=== PATIENT | female | born 1965 | race Caucasian/White ===

== ENCOUNTER 2019-02-01 13:56 | Inpatient (IN) | payer OTHER ==
[~2019-02-01] VITALS: Ht 170.2 cm; Wt 154.2 kg
[~2019-02-01 13:56] MED LIST: B-121000 MC2 PO; CEPH500 PO; CLIN300 PO; COU; COUMADIN; CYCL10 PO; DOCU100 PO; DULO30 PO; ELIQUIS5 MG PO; FERSU300 PO; FLUO20; FOLI1 PO; GABA300 PO; GABA600 PO; HYDACE5; HYDACE5 PO; MIRALAX17 GM PO; NAPR550 PO; OMEPRAZOLE MAGN20 MG PO; OXYACE5T PO; OXYC1TAB11 PO; Pedi-Dri 100,0060 GM TOP; Percocet 7.5-31 EACH PO; SENN187 PO; SIMV10; TRAM50 PO; Ultram50 MG PO; WARF10; [UNRECOGNIZED DRUG - OTHER]
[2019-02-01] MEDS ORDERED: Fleet Enema132 ML PR (14:48)
[2019-02-01] MEDS ORDERED: FURO40 (14:49)
[2019-02-01] MEDS ORDERED: POTCHL20ER PO (14:50)
[2019-02-01 15:01] LABS: Source, Urine Catheter
[2019-02-01 15:07] LABS: BASOPHILS ABSOLUTE AUTO 0.02 K/mm3 (0.00-0.23); BASOPHILS PERCENT AUTO 0 % (0-2); EOSINOPHILS ABSOLUTE AUTO 0.21 K/mm3 (0.00-0.68); EOSINOPHILS PERCENT AUTO 2 % (0-6); Hematocrit 41.4 % (33.0-51.0); Hemoglobin 12.4 g/dL (11.5-16.0); IMMATURE GRAN ABSOLUTE AUTO 0.03 K/mm3 (0.00-0.10); IMMATURE GRAN PERCENT AUTO 0 % (0-1); LYMPHOCYTES ABSOLUTE AUTO 1.42 K/mm3 (0.84-5.20); LYMPHOCYTES PERCENT AUTO 14 % (21-46); MONOCYTES ABSOLUTE AUTO 0.75 K/mm3 (0.16-1.47); MONOCYTES PERCENT AUTO 8 % (4-13); Mean Corpuscular Volume 77 fL (80-100); Mean Platelet Volume 10.5 fL (9.1-12.4); NEUTROPHILS PERCENT AUTO 75 % (41-73); Platelet Count 270 K/mm3 (150-400); RDW Coefficient Variation 17.8 % (11.7-14.2); RDW Standard Deviation 48.5 fL (35.1-46.3); White Blood Cell Count 9.83 K/mm3 (4.00-11.30)
[2019-02-01 15:09] LABS: Bilirubin, Urine Neg (Neg); Blood, Urine Neg (Neg); Glucose Qualitative, Urine Neg (Neg); Ketones, Urine Neg (Neg); Leukocyte Esterase, Urine Neg (Neg); Nitrite, Urine Neg (Neg); Protein, Urine Neg (Neg); Urobilinogen, Urine NORM (Normal)
[2019-02-01 15:17] LABS: Alanine Aminotransfer (ALT/SGP 21 U/L (12-78); Albumin, Blood 3.2 g/dL (3.4-5.0); Albumin/Globulin Ratio 0.7 (0.8-1.8); Alk Phos 141 U/L (50-136); Anion Gap 6 mmol/L (6-16); Aspartate Aminotrans (AST/SGOT 18 U/L (12-37); Bilirubin, Total 0.4 mg/dL (0.1-1.0); Blood Urea Nitrogen 12 mg/dL (8-24); Bun/Creatinine Ratio 24.2 (12.0-20.0); CO2, Blood 31 mmol/L (21-32); Calcium, Blood 9.2 mg/dL (8.5-10.1); Chloride, Blood 104 mmol/L (98-108); Globulin, Blood 4.4 g/dL (2.2-4.0); Glomerular Filtration Rate >60 (60-); Glucose, Blood 104 mg/dL (70-99); Sodium, Blood 141 mmol/L (136-145); Total Protein, Blood 7.6 g/dL (6.4-8.2)
[2019-02-01 15:27] LABS: Appearance, Urine Clear (Clear); Color, Urine Yellow (P-Yellow)
[2019-02-01] MEDS ORDERED: FURO40 PO (18:07)
[2019-02-01 23:01] LABS: Source, Urine Catheter
[2019-02-01 23:03] LABS: Bilirubin, Urine Neg (Neg); Blood, Urine 2+ (Neg); Glucose Qualitative, Urine Neg (Neg); Ketones, Urine Neg (Neg); Leukocyte Esterase, Urine 3+ (Neg); Nitrite, Urine Neg (Neg); Protein, Urine Neg (Neg); Urobilinogen, Urine NORM (Normal)
[2019-02-01 23:11] LABS: Appearance, Urine Hazy (Clear); Color, Urine Yellow (P-Yellow)
[2019-02-01 23:13] LABS: Bacteria Mod /hpf; Squamous Epithelial Cells Mod /hpf (Few); White Blood Cells, Urine TNTC /hpf (0-5)
[2019-02-02 04:50] LABS: BASOPHILS ABSOLUTE AUTO 0.03 K/mm3 (0.00-0.23); BASOPHILS PERCENT AUTO 0 % (0-2); EOSINOPHILS ABSOLUTE AUTO 0.16 K/mm3 (0.00-0.68); EOSINOPHILS PERCENT AUTO 2 % (0-6); Hematocrit 39.2 % (33.0-51.0); Hemoglobin 11.7 g/dL (11.5-16.0); IMMATURE GRAN ABSOLUTE AUTO 0.02 K/mm3 (0.00-0.10); IMMATURE GRAN PERCENT AUTO 0 % (0-1); LYMPHOCYTES ABSOLUTE AUTO 1.74 K/mm3 (0.84-5.20); LYMPHOCYTES PERCENT AUTO 21 % (21-46); MONOCYTES ABSOLUTE AUTO 0.75 K/mm3 (0.16-1.47); MONOCYTES PERCENT AUTO 9 % (4-13); Mean Corpuscular HGB 23.1 pg (26.0-34.0); Mean Corpuscular HGB Conc 29.8 g/dL (31.5-36.5); Mean Corpuscular Volume 77 fL (80-100); NEUTROPHILS ABSOLUTE AUTO 5.79 K/mm3 (1.96-9.15); NEUTROPHILS PERCENT AUTO 68 % (41-73); Platelet Count 265 K/mm3 (150-400); RDW Coefficient Variation 17.6 % (11.7-14.2); Red Blood Cell Count 5.07 M/mm3 (3.80-5.20); White Blood Cell Count 8.49 K/mm3 (4.00-11.30)
[2019-02-02 05:06] LABS: Anion Gap 3 mmol/L (6-16); Blood Urea Nitrogen 9 mg/dL (8-24); Bun/Creatinine Ratio 22.5 (12.0-20.0); CO2, Blood 29 mmol/L (21-32); Calcium, Blood 8.9 mg/dL (8.5-10.1); Chloride, Blood 110 mmol/L (98-108); Glomerular Filtration Rate >60 (60-); Glucose, Blood 97 mg/dL (70-99); Potassium, Blood 3.9 mmol/L (3.5-5.5); Sodium, Blood 142 mmol/L (136-145)
--- NOTE | 2019-02-02 06:09 | NUR ---
SHIFT SUMMARY ADMIT @ 2004 FROM [facility] ADMITTED FOR SBO. AOX4. LS CLEAR, DENIES SOB. BS HYPO, NO C/O NAUSEA, LAST BM YESTERDAY. PAIN RATED 8-9/10 MOSTLY IN R LEG. R LEG CONTRACTURE. PERCOCET GIVEN @ 2155, 0200, AND 0330. FLEXERIL GIVEN @ 0045. 50MCG OF FENT GIVEN @ 0430. ONE TIME DOSE OF ATIVAN GIVEN @ 0430. CHRONIC THOMASON FROM [facility] CHANGED. NG ON LOW INT SUCTION, ABOUT 200 OF BROWN MUCOUSY OUTPUT OVERNIGHT. NS W/KCL INFUSING @ 150 IN R AC. NPO EXCEPT ICE CHIPS. Q2 TURN, ASHVIN LIFT. 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 L HIP WOUND IS FROM AN OLD HEALING ULCER, DRESSING C/D/I. SECOND OLD HEALING ULCER ON COCCYX, UNABLE TO SEE, PLAN TO ASSESS NEXT TIME PT IS ABLE TO MOVE. TELE READS NSR 78. REFUSED SUPPOSITORY. VSS ON RA. SISTER STAYED THE NIGHT WITH HER.
--- NOTE | 2019-02-02 18:27 | NUR ---
HTN PT'S BLOOD PRESSURE 186/96. THIS RN CALLED DR. SLATER AND NOTIFIED HER OF PT'S INCREASING BP WITH NO ORDERED PRN MEDICATIONS. NEW ORDERS GIVEN FOR HYDRALAZINE AND D/C OF IVF. HYDRALAZINE ADMINISTERED PER ORDERS AND IVF STOPPED. WILL CONTINUE TO MONITOR EFFECTIVENESS OF HYDRALAZINE. CALL LIGHT IN REACH.
--- NOTE | 2019-02-02 18:29 | NUR ---
SHIFT SUMMARY PT HAS HAD 2 LARGE SOFT STOOLS THIS SHIFT. PT'S DIET ADVANCED TO CLEAR LIQUID AND PT TOLERATING. IVF STOPPED PER DR. SLATER'S ORDER. PT HAS HAD HTN THIS SHIFT AND HYDRALAZINE WAS GIVEN THIS EVENING. THOMASON PATENT AND DRAINGING LARGE AMOUNTS OF URINE. MEDICATED FOR HEADACHE X1 AND CHRONIC PAIN X2 PER EMAR. NO DISTRESS AT THIS TIME. CALL LIGHT IN REACH. WILL CONTINUE TO MONITOR AND REPORT TO ONCOMING RN.
--- NOTE | 2019-02-03 05:33 | NUR ---
SHIFT SUMMARY AOX4. LS CLEAR, DENIES SOB. NO C/O NAUSEA. PAIN IN L LEG. FLEXERIL GIVEN @ 2300. 2 PERCOCET GIVEN @ 0120. WOUND ON COCCYX UNSEEN, PT REFUSES TO ROLL. L HIP DRESSING C/D/I. TELE READS NSR 83. R AC IS SL. ASHVIN LIFT. CHRONIC THOMASON, CLOUDY YELLOW. REFUSED SUPPOSITORY. VSS ON RA. [facility]
--- NOTE | 2019-02-03 14:30 | NUR ---
REPORT CALLED TO AVRIL AT [facility]. SISTER HAS BEEN IN AND OUT OF ROOM AND IS AWARE OF PTS DISCHARGE. PT TURNED AND ALLOWED TO BE CLEANED UP AND PIC TAKEN OF L HIP. FRIENDLY AND CHATTY WITH STAFF. HAPPY TO BE GOING BACK. DENIES ANY ABDOMENAL PAIN OR NAUSEA. SLID TO GURNEY WITH SLING. TO [facility] VIA GURNEY WITH TRANSPORT ASSISTANTS.
[2019-02-03] MEDS ORDERED: GAVILAX17 GM PO (15:43)
== END 2019-02-03 14:05 | DRG 394 ==
LOC: ER 13:56 → MEDS 18:25
PROVIDERS: Emergency Medicine; Nurse Practitioner Acute Care; ADMIT Internal Medicine
DX: K43.6 Other and unspecified ventral hernia with obstruction, without gangrene (principal); Z68.43 Body mass index [BMI] 50.0-59.9, adult; Z74.01 Bed confinement status; Z87.891 Personal history of nicotine dependence; E66.01 Morbid (severe) obesity due to excess calories; G89.29 Other chronic pain
CPT/HCPCS: 36415; 74176; 80048; 80053; 81001; 81003; 83690; 85025; 87077; 87086; 87186; 96361; 96374; 99285-25; A9270; J0360; J0696; J2060; J3010; J3480; J7030

== ENCOUNTER → 2019-05-24 | Outpatient (CLI) | payer OTHER ==
[~2019-05-24] MED LIST changes: +FURO40; +FURO40 PO; +Fleet Enema132 ML PR; +GAVILAX17 GM PO; +POTCHL20ER PO
[2019-05-24 10:27] LABS: International Normalized Ratio 1.02; Prothrombin Time Results 10.9 Sec (9.7-11.5)
== END | disposition home or self-care (01) ==
LOC: LAB RH 08:07 → EDSTATUS 11:50 → LAB RH 11:51
DX: R79.1 Abnormal coagulation profile (principal)
CPT/HCPCS: 36415; 85610

== ENCOUNTER → 2019-05-26 | Outpatient (CLI) | payer OTHER ==
[2019-05-26 09:32] LABS: International Normalized Ratio 1.38; Prothrombin Time Results 14.5 Sec (9.7-11.5)
== END | disposition home or self-care (01) ==
LOC: LAB RH 08:26 → EDSTATUS 11:51
DX: R79.1 Abnormal coagulation profile (principal)
CPT/HCPCS: 36415; 85610

== ENCOUNTER → 2019-05-31 | Outpatient (CLI) | payer OTHER ==
[2019-05-31 10:21] LABS: International Normalized Ratio 2.92; Prothrombin Time Results 29.4 Sec (9.7-11.5)
== END | disposition home or self-care (01) ==
LOC: LAB RH 08:25 → EDSTATUS 15:14 → LAB RH 15:15
DX: I82.409 Acute embolism and thrombosis of unspecified deep veins of unspecified lower extremity (principal)
CPT/HCPCS: 36415; 85610

== ENCOUNTER → 2019-06-07 | Outpatient (CLI) | payer OTHER ==
[2019-06-07 10:43] LABS: International Normalized Ratio 3.44; Prothrombin Time Results 34.3 Sec (9.7-11.5)
== END ==
LOC: LAB RH 08:33 → EDSTATUS 11:29 → LAB RH 11:30
PROVIDERS: Family Medicine
DX: Z79.01 Long term (current) use of anticoagulants (principal); Z51.81 Encounter for therapeutic drug level monitoring
CPT/HCPCS: 36415; 85610

== ENCOUNTER → 2019-06-10 | Outpatient (CLI) | payer OTHER ==
[2019-06-10 10:28] LABS: International Normalized Ratio 2.57; Prothrombin Time Results 26.1 Sec (9.7-11.5)
== END | disposition home or self-care (01) ==
LOC: LAB RH 08:10 → EDSTATUS 11:32
PROVIDERS: Family Medicine
DX: I82.423 Acute embolism and thrombosis of iliac vein, bilateral (principal)
CPT/HCPCS: 36415; 85610

== ENCOUNTER → 2019-06-14 | Outpatient (CLI) | payer OTHER ==
[2019-06-14 11:24] LABS: International Normalized Ratio 2.74; Prothrombin Time Results 27.7 Sec (9.7-11.5)
== END | disposition home or self-care (01) ==
LOC: LAB RH 09:54 → EDSTATUS 11:33
PROVIDERS: Family Medicine
DX: I26.99 Other pulmonary embolism without acute cor pulmonale (principal)
CPT/HCPCS: 36415; 85610

== ENCOUNTER → 2019-06-21 | Outpatient (CLI) | payer OTHER ==
[2019-06-21 10:23] LABS: International Normalized Ratio 2.72; Prothrombin Time Results 27.5 Sec (9.7-11.5)
== END | disposition home or self-care (01) ==
LOC: LAB RH 09:07 → EDSTATUS 13:48
PROVIDERS: Nurse Practitioner Gerontology
DX: I26.99 Other pulmonary embolism without acute cor pulmonale (principal)
CPT/HCPCS: 36415; 85610

== ENCOUNTER → 2019-07-06 | Outpatient (CLI) | payer OTHER ==
[2019-07-06 11:33] LABS: International Normalized Ratio 1.93; Prothrombin Time Results 19.9 Sec (9.7-11.5)
== END | disposition home or self-care (01) ==
LOC: LAB RH 09:04 → EDSTATUS 13:52 → LAB RH 13:53
PROVIDERS: Family Medicine
DX: I26.99 Other pulmonary embolism without acute cor pulmonale (principal)
CPT/HCPCS: 36415; 85610

== ENCOUNTER → 2019-07-13 | Outpatient (CLI) | payer OTHER ==
[2019-07-13 09:34] LABS: International Normalized Ratio 2.19; Prothrombin Time Results 22.4 Sec (9.7-11.5)
== END | disposition home or self-care (01) ==
LOC: LAB RH 07:44 → EDSTATUS 11:09
PROVIDERS: Family Medicine
DX: I26.99 Other pulmonary embolism without acute cor pulmonale (principal)
CPT/HCPCS: 36415; 85610

== ENCOUNTER → 2019-07-20 | Outpatient (CLI) | payer OTHER ==
[2019-07-20 09:19] LABS: International Normalized Ratio 2.22; Prothrombin Time Results 22.7 Sec (9.7-11.5)
== END | disposition home or self-care (01) ==
LOC: LAB RH 07:31 → EDSTATUS 13:21
DX: I26.99 Other pulmonary embolism without acute cor pulmonale (principal)
CPT/HCPCS: 36415; 85610

== ENCOUNTER 2019-09-29 07:25 | Inpatient (IN) | payer OTHER ==
[~2019-09-29] VITALS: Ht 167.6 cm; Wt 174.7 kg
[2019-09-29] MEDS ORDERED: FERSU300 PO (08:05)
[2019-09-29] MEDS ORDERED: DULO30 PO (08:05)
[2019-09-29] MEDS ORDERED: FURO40 PO (08:06)
[2019-09-29] MEDS ORDERED: SENN187 PO (08:06)
[2019-09-29] MEDS ORDERED: OMEP20ER PO (08:06)
[2019-09-29] MEDS ORDERED: FOLI1 PO (08:06)
[2019-09-29] MEDS ORDERED: K-Dur 20 meq T20 MEQ PO (08:06)
[2019-09-29] MEDS ORDERED: GABA300 PO (08:07)
[2019-09-29] MEDS ORDERED: PERCOCET 10-321 EACH PO (08:07)
[2019-09-29] MEDS ORDERED: CYAN500 PO (08:07)
[2019-09-29] MEDS ORDERED: CYCL10 PO (08:08)
[2019-09-29] MEDS ORDERED: WARF5 PO (08:09)
[2019-09-29] MEDS ORDERED: WARF3 (08:09)
[2019-09-29 08:11] LABS: BASOPHILS ABSOLUTE AUTO 0.04 K/mm3 (0.00-0.23); BASOPHILS PERCENT AUTO 0 % (0-2); EOSINOPHILS ABSOLUTE AUTO 0.01 K/mm3 (0.00-0.68); EOSINOPHILS PERCENT AUTO 0 % (0-6); Hemoglobin 14.4 g/dL (11.5-16.0); IMMATURE GRAN ABSOLUTE AUTO 0.08 K/mm3 (0.00-0.10); IMMATURE GRAN PERCENT AUTO 1 % (0-1); LYMPHOCYTES ABSOLUTE AUTO 1.35 K/mm3 (0.84-5.20); LYMPHOCYTES PERCENT AUTO 9 % (21-46); MONOCYTES ABSOLUTE AUTO 0.62 K/mm3 (0.16-1.47); MONOCYTES PERCENT AUTO 4 % (4-13); Mean Corpuscular HGB Conc 30.6 g/dL (31.5-36.5); Mean Corpuscular Volume 82 fL (80-100); Mean Platelet Volume 10.8 fL (9.1-12.4); NEUTROPHILS ABSOLUTE AUTO 13.59 K/mm3 (1.96-9.15); NEUTROPHILS PERCENT AUTO 87 % (41-73); Platelet Count 259 K/mm3 (150-400); RDW Standard Deviation 48.9 fL (35.1-46.3); Red Blood Cell Count 5.75 M/mm3 (3.80-5.20); White Blood Cell Count 15.69 K/mm3 (4.00-11.30)
[2019-09-29 08:33] LABS: Alanine Aminotransfer (ALT/SGP 16 U/L (12-78); Albumin, Blood 3.3 g/dL (3.4-5.0); Albumin/Globulin Ratio 0.7 (0.8-1.8); Alk Phos 143 U/L (50-136); Anion Gap 5 mmol/L (6-16); Aspartate Aminotrans (AST/SGOT 15 U/L (12-37); Bilirubin, Total 0.6 mg/dL (0.1-1.0); Blood Urea Nitrogen 10 mg/dL (8-24); Bun/Creatinine Ratio 22.9 (12.0-20.0); CO2, Blood 29 mmol/L (21-32); Calcium, Blood 8.9 mg/dL (8.5-10.1); Chloride, Blood 106 mmol/L (98-108); Creatinine, Blood 0.44 mg/dL (0.40-1.00); Globulin, Blood 4.9 g/dL (2.2-4.0); Glomerular Filtration Rate >60 (60-); Glucose, Blood 136 mg/dL (70-99); Potassium, Blood 3.5 mmol/L (3.5-5.5); Sodium, Blood 140 mmol/L (136-145); Total Protein, Blood 8.2 g/dL (6.4-8.2); Troponin I <0.015 ng/mL (0.000-0.040)
[2019-09-29 11:18] LABS: International Normalized Ratio 1.63
--- NOTE | 2019-09-29 14:52 | NUR ---
RECIEVED REPORT FROM COOKER SULFITE MARINA AT 1140. PATIENT ARRIVED TO ROOM 340 AT 1201 AND WAS TRANSFERED INTO HOSPITAL BED WITH THE ASSISTANCE OF 3 EMPLOYEES. ASSESSMENT, H&P AND MED REC COMPLETED WITH THE ASSISTANCE OF THE PATIENT. PATIENT ALERT AND ORIENTED. BEDBOUND AND INCONTINENT AT BASELINE. COOPERATIVE WITH STAFF. PATIENT HAS BEEN STARTED ON IV ABX WITHOUT S/SX OF ADVERSE REACTIONS NOTED OR REPORTED. C/O SEVERE HEART BURN AND WAS ABLE TO RECEIVE AN ORDER FROM DR PETERSON FOR MAALOX PRN, TAKEN WITH EFFECTIVENESS. PATIENT IS CURRENTLY IN ROOM RESTING IN BED. WILL CONTINUE TO MONITOR AND PROVIDE CARE NEEDED.
--- NOTE | 2019-09-29 16:31 | NUR ---
PATIENT BEGAN TO CRY OUT IN PAIN AT ABOUT 1600. SHE STATES THAT SHE FEELS SHE IS DYING. SHE WANTS DR PETERSON TO COME SEE HER. DR PETERSON CAME TO PATIENTS ROOM TO ASSESS HER AND PROVIDED NEW ORDERS PER EMAR. IV ACCESS ACCIDENTLY PULLED. AWAITING IV ACCESS TO ADMINISTER MEDICATION.
--- NOTE | 2019-09-29 18:33 | NUR ---
PATIENT CONTINUED TO COMPLAIN OF PAIN AND BEGAN ASKING FOR ITEMS TO HARM HERSELF D/T THE PAIN BEING TOO MUCH TO BARE. RAPID RESPONSE CALLED ON THE PATIENT AND A STAT CTA. PATIENT WAS JUST TAKEN AT 1830 FOR THE CTA AND WILL THEN BE TRANSFERED TO PCU.
--- NOTE | 2019-09-29 21:00 | NUR ---
UPDATE NURSE PRACTIONER MONSERRAT IN ROOM ASSESSING PATIENT. NG TUBE ORDERED AND PLACED AT THIS TIME WELL WITH A RETURN OF APPROX 400 MLS OF DARK GREEN FLUID. NG TUBE PLACED TO LOW INTERMITTENT SUCTION PER ORDERS. IV FLUIDS STARTED PER ORDERS WELL. SADAF NAJERA UPDATED PER PATIENT'S REQUEST.
--- NOTE | 2019-09-29 21:59 | NUR ---
UPDATE PATIENT'S SISTER ANA LILIA UPDATED WELL PER PATIENT'S REQUEST. SECOND IV PLACED AT THIS TIME. VITAL SIGNS CHARTED. PATIENT REPORTING PAIN IS A 10/10. PATIENT BEING MEDICATED PER EMAR AND HAS A HEATING PAD ON ABD FOR COMFORT WELL. PATIENT APPEARS TO BE RESTING MORE COMFORTABLY AT THIS TIME. PATIENT REQUESTING NOT TO BE TURNED RIGHT NOW DUE TO PAIN. PATIENT HAS AN ACCEPTING DR AND A BED ASIGNMENT IN [place] AT THIS TIME. WAITING ON APPROPRIATE TRANSPORTATION TO BE AVAILIBLE. WILL CONTINUE TO MONITOR.
--- NOTE | 2019-09-29 22:50 | NUR ---
EVENT NOTE NOTIFIED AVRIL (HOSPITALIST) THAT AIR TRANSPORT HAS DECLINED DUE TO PATIENT SIZE. [facility] WITH [facility] IS 2-1/2 HOURS OUT. AVRIL HAS AGREED THAT GROUND TRANSPORT WOULD BE BEST AT THIS TIME SO NOT TO DELAY TREATMENT ANY FURTHER. NOTIFIED [facility] AND AWAITING AVAILABILITY OF A CREW.
--- NOTE | 2019-09-29 23:45 | NUR ---
UPDATE PICAYUNE WAPA ARRIVED TO TRANSPORT PATIENT TO [place], REPORT GIVEN AND ALL BELONGINGS SENT WITH PATIENT. PATIENT LEFT AT APPROX 2330. NIECE, REINALDO, AND SISTER, ANA LILIA, AWARE THAT PATIENT IS LEAVING AT THIS TIME. PATIENT'S VITALS CHARTED. PATIENT HAS BEEN RESTING QUIETLY AND EVEN STATED THAT SHE HAD GOTTEN, "A LITTLE SLEEP." PRIOR TO PICAYUNE WAPA ARRIVING.
--- NOTE | 2019-09-29 23:58 | NUR ---
[facility] GIVEN TO BENJAMIN MATHUR FROM [facility] AT APPROX 3503.
== END 2019-09-30 00:05 | disposition short-term general hospital (02) | DRG 388 ==
LOC: ER 07:25 → MEDS 10:35 → PCU 18:52
PROVIDERS: Emergency Medicine; Pharmacist; ADMIT Internal Medicine
DX: K56.2 Volvulus (principal); J69.0 Pneumonitis due to inhalation of food and vomit; Z68.44 Body mass index [BMI] 60.0-69.9, adult; Z87.891 Personal history of nicotine dependence; E66.01 Morbid (severe) obesity due to excess calories; Z74.01 Bed confinement status; G89.4 Chronic pain syndrome; Z79.01 Long term (current) use of anticoagulants; K43.9 Ventral hernia without obstruction or gangrene
CPT/HCPCS: 36415; 71045; 71275; 74174; 74177; 80053; 83605; 83690; 84484; 85025; 85610; 93005; 93010; 94760; 96365-59; 96367; 96375; 99285-25; C9113; J0696; J1170; J1885; J2060; J2270; J2405; J2550; J7030; J7050; P9612; Q9967

== ENCOUNTER 2019-10-28 19:17 | Inpatient (IN) | payer OTHER ==
[~2019-10-28] VITALS: Ht 175.3 cm; Wt 181.4 kg
[~2019-10-28 19:17] MED LIST changes: +CYAN500 PO; +K-Dur 20 meq T20 MEQ PO; +OMEP20ER PO; +PERCOCET 10-321 EACH PO; +WARF3; +WARF5 PO
[2019-10-28] MEDS ORDERED: SIME80CH PO (19:33)
[2019-10-28 19:57] LABS: BASOPHILS ABSOLUTE AUTO 0.05 K/mm3 (0.00-0.23); BASOPHILS PERCENT AUTO 0 % (0-2); EOSINOPHILS ABSOLUTE AUTO 0.13 K/mm3 (0.00-0.68); EOSINOPHILS PERCENT AUTO 1 % (0-6); Hematocrit 36.2 % (33.0-51.0); Hemoglobin 10.2 g/dL (11.5-16.0); IMMATURE GRAN ABSOLUTE AUTO 0.04 K/mm3 (0.00-0.10); IMMATURE GRAN PERCENT AUTO 0 % (0-1); LYMPHOCYTES ABSOLUTE AUTO 1.19 K/mm3 (0.84-5.20); LYMPHOCYTES PERCENT AUTO 9 % (21-46); MONOCYTES ABSOLUTE AUTO 1.15 K/mm3 (0.16-1.47); MONOCYTES PERCENT AUTO 9 % (4-13); Mean Corpuscular HGB 23.3 pg (26.0-34.0); Mean Corpuscular HGB Conc 28.2 g/dL (31.5-36.5); Mean Corpuscular Volume 83 fL (80-100); Mean Platelet Volume 9.9 fL (9.1-12.4); NEUTROPHILS ABSOLUTE AUTO 10.82 K/mm3 (1.96-9.15); NEUTROPHILS PERCENT AUTO 81 % (41-73); Platelet Count 465 K/mm3 (150-400); RDW Coefficient Variation 17.9 % (11.7-14.2); RDW Standard Deviation 54.2 fL (35.1-46.3); Red Blood Cell Count 4.37 M/mm3 (3.80-5.20); White Blood Cell Count 13.38 K/mm3 (4.00-11.30)
[2019-10-28 20:11] LABS: Alanine Aminotransfer (ALT/SGP 9 U/L (12-78); Albumin, Blood 2.5 g/dL (3.4-5.0); Albumin/Globulin Ratio 0.5 (0.8-1.8); Alk Phos 127 U/L (50-136); Anion Gap 7 mmol/L (6-16); Aspartate Aminotrans (AST/SGOT 21 U/L (12-37); Bilirubin, Total 0.7 mg/dL (0.1-1.0); Blood Urea Nitrogen 8 mg/dL (8-24); Bun/Creatinine Ratio 17.2 (12.0-20.0); CO2, Blood 27 mmol/L (21-32); Calcium, Blood 8.3 mg/dL (8.5-10.1); Chloride, Blood 105 mmol/L (98-108); Creatinine, Blood 0.47 mg/dL (0.40-1.00); Globulin, Blood 5.4 g/dL (2.2-4.0); Glomerular Filtration Rate >60 (60-); Glucose, Blood 112 mg/dL (70-99); Potassium, Blood 3.9 mmol/L (3.5-5.5); Sodium, Blood 139 mmol/L (136-145); Total Protein, Blood 7.9 g/dL (6.4-8.2)
== END 2019-10-29 03:24 | DRG 862 ==
LOC: ER 19:17 → ERHOLD 23:32 → ER 10-29 00:35 → ERHOLD 10-29 03:00
PROVIDERS: Emergency Medicine; ADMIT Internal Medicine
DX: T81.43XA Infection following a procedure, organ and space surgical site, initial encounter (principal); A41.9 Sepsis, unspecified organism; Z68.43 Body mass index [BMI] 50.0-59.9, adult; T81.44XA Sepsis following a procedure, initial encounter; Z87.891 Personal history of nicotine dependence; E66.01 Morbid (severe) obesity due to excess calories
CPT/HCPCS: 36415; 74177; 80053; 83605; 83690; 85025; 87040; 96361; 96365-59; 96366; 96375; 96376; 99285-25; J1170; J2185; J2405; J3370; J7030; J7050; Q9967

== ENCOUNTER → 2020-04-04 | Outpatient (CLI) | payer OTHER ==
[~2020-04-04] MED LIST changes: +SIME80CH PO
[2020-04-04 15:13] LABS: International Normalized Ratio 2.03; Prothrombin Time Results 20.9 Sec (9.7-11.5)
== END | disposition home or self-care (01) ==
LOC: LAB RH 11:30
PROVIDERS: Family Medicine
DX: I26.99 Other pulmonary embolism without acute cor pulmonale (principal)
CPT/HCPCS: 85610

== ENCOUNTER → 2020-07-05 | Outpatient (CLI) | payer OTHER ==
[2020-07-05 10:36] LABS: Anion Gap 7 mmol/L (6-16); Blood Urea Nitrogen 9 mg/dL (8-24); CO2, Blood 28 mmol/L (21-32); Calcium, Blood 8.3 mg/dL (8.5-10.1); Chloride, Blood 106 mmol/L (98-108); Creatinine, Blood 0.56 mg/dL (0.40-1.00); Glomerular Filtration Rate >60 (60-); Glucose, Blood 85 mg/dL (70-99); Potassium, Blood 4.1 mmol/L (3.5-5.5); Sodium, Blood 141 mmol/L (136-145)
== END | disposition home or self-care (01) ==
LOC: LAB RH 09:47 → EDSTATUS 13:44
PROVIDERS: Family Medicine
DX: R60.0 Localized edema (principal)
CPT/HCPCS: 80048

== ENCOUNTER → 2020-10-19 | Outpatient (CLI) | payer OTHER ==
[2020-10-19 12:22] LABS: International Normalized Ratio 1.67; Prothrombin Time Results 17.5 Sec (9.7-11.5)
== END | disposition home or self-care (01) ==
LOC: LAB RH 10:16 → EDSTATUS 10:26
PROVIDERS: Internal Medicine
DX: I26.99 Other pulmonary embolism without acute cor pulmonale (principal)
CPT/HCPCS: 85610

== ENCOUNTER → 2020-10-27 | Outpatient (CLI) | payer OTHER ==
[2020-10-27 12:31] LABS: International Normalized Ratio 1.9; Prothrombin Time Results 19.8 Sec (9.7-11.5)
== END ==
LOC: EDSTATUS 09:32 → LAB RH 10:55
PROVIDERS: Family Medicine
DX: I26.99 Other pulmonary embolism without acute cor pulmonale (principal); Z79.01 Long term (current) use of anticoagulants
CPT/HCPCS: 85610

== ENCOUNTER → 2020-11-02 | Outpatient (CLI) | payer OTHER ==
[2020-11-02 12:34] LABS: International Normalized Ratio 2.26; Prothrombin Time Results 23.3 Sec (9.7-11.5)
== END ==
LOC: EDSTATUS 09:33 → LAB RH 11:20
PROVIDERS: Internal Medicine
DX: R79.1 Abnormal coagulation profile (principal)
CPT/HCPCS: 85610

== ENCOUNTER → 2021-01-05 | Outpatient (CLI) | payer OTHER ==
[2021-01-05 17:42] LABS: Anion Gap 4 mmol/L (6-16); Blood Urea Nitrogen 12 mg/dL (8-24); Bun/Creatinine Ratio 22.3 (12.0-20.0); CO2, Blood 31 mmol/L (21-32); Calcium, Blood 8.7 mg/dL (8.5-10.1); Chloride, Blood 107 mmol/L (98-108); Creatinine, Blood 0.54 mg/dL (0.40-1.00); Glomerular Filtration Rate >60 (60-); Glucose, Blood 81 mg/dL (70-99); Potassium, Blood 3.9 mmol/L (3.5-5.5); Sodium, Blood 142 mmol/L (136-145)
== END | disposition home or self-care (01) ==
LOC: EDSTATUS 12:05 → LAB RH 13:55
PROVIDERS: Internal Medicine
DX: R60.0 Localized edema (principal)
CPT/HCPCS: 80048

== ENCOUNTER → 2021-06-19 | Outpatient (CLI) | payer OTHER ==
[2021-06-19 16:34] LABS: International Normalized Ratio 2.38; Prothrombin Time Results 23.6 Sec (9.7-11.5)
== END | disposition home or self-care (01) ==
LOC: EDSTATUS 10:56 → LAB RH 13:42
PROVIDERS: Internal Medicine
DX: U07.1 COVID-19 (principal)
CPT/HCPCS: 85610

== ENCOUNTER → 2021-09-14 | Outpatient (CLI) | payer OTHER ==
[2021-09-14 11:10] LABS: International Normalized Ratio 2.87; Prothrombin Time Results 28.1 Sec (9.7-11.5)
== END | disposition home or self-care (01) ==
LOC: LAB RH 08:40 → EDSTATUS 14:59
PROVIDERS: Internal Medicine
DX: R26.89 Other abnormalities of gait and mobility (principal)
CPT/HCPCS: 85610

== ENCOUNTER → 2021-10-25 | Outpatient (CLI) | payer OTHER ==
[2021-10-25 13:30] LABS: International Normalized Ratio 2.23; Prothrombin Time Results 22.2 Sec (9.7-11.5)
== END | disposition home or self-care (01) ==
LOC: LAB RH 12:34 → EDSTATUS 13:13
PROVIDERS: Internal Medicine
DX: I26.99 Other pulmonary embolism without acute cor pulmonale (principal)
CPT/HCPCS: 85610

== ENCOUNTER 2022-01-12 15:38 | Emergency (ER) | payer OTHER ==
[~2022-01-12] VITALS: Ht 172.7 cm; Wt 173.7 kg
[~2022-01-12 15:38] MED LIST changes: -ACET325 PO; -BACL10 PO
[2022-01-12 17:43] LABS: Influenza A, PCR NEGATIVE (NEGATIVE); Influenza B, PCR NEGATIVE (NEGATIVE); Resp Syncytial Virus, PCR NEGATIVE (NEGATIVE); SARS-Cov-2 (COVID-19) PCR, MMC NEGATIVE (NEGATIVE)
== END 2022-01-12 19:19 | disposition home or self-care (01) ==
LOC: ER 15:38
PROVIDERS: Student in an Organized Health Care Education/Training Program
DX: J98.11 Atelectasis (principal); R51.9 Headache, unspecified; E66.2 Morbid (severe) obesity with alveolar hypoventilation; D64.9 Anemia, unspecified; Z68.43 Body mass index [BMI] 50.0-59.9, adult; Z87.891 Personal history of nicotine dependence; Z86.718 Personal history of other venous thrombosis and embolism; Z79.899 Other long term (current) drug therapy; Z79.01 Long term (current) use of anticoagulants; Z74.01 Bed confinement status; Z20.822 Contact with and (suspected) exposure to COVID-19
CPT/HCPCS: 0241U; 71045; 93005; 93010; A9270

== ENCOUNTER → 2022-01-12 | Outpatient (CLI) | payer OTHER ==
[~2022-01-12] MED LIST changes: +ACET325 PO; +BACL10 PO
[2022-01-12 09:59] LABS: BASOPHILS ABSOLUTE AUTO 0.05 K/mm3 (0.00-0.23); BASOPHILS PERCENT AUTO 1 % (0-2); EOSINOPHILS ABSOLUTE AUTO 0.28 K/mm3 (0.00-0.68); EOSINOPHILS PERCENT AUTO 3 % (0-6); Hematocrit 39.6 % (33.0-51.0); Hemoglobin 10.7 g/dL (11.5-16.0); IMMATURE GRAN ABSOLUTE AUTO 0.04 K/mm3 (0.00-0.10); IMMATURE GRAN PERCENT AUTO 0 % (0-1); LYMPHOCYTES ABSOLUTE AUTO 1.63 K/mm3 (0.84-5.20); LYMPHOCYTES PERCENT AUTO 15 % (21-46); MONOCYTES ABSOLUTE AUTO 0.88 K/mm3 (0.16-1.47); MONOCYTES PERCENT AUTO 8 % (4-13); Mean Corpuscular Volume 74 fL (80-100); Mean Platelet Volume 10.2 fL (9.1-12.4); NEUTROPHILS ABSOLUTE AUTO 8.23 K/mm3 (1.96-9.15); NEUTROPHILS PERCENT AUTO 74 % (41-73); Platelet Count 301 K/mm3 (150-400); RDW Coefficient Variation 19.7 % (11.7-14.2); RDW Standard Deviation 51.4 fL (35.1-46.3); Red Blood Cell Count 5.36 M/mm3 (3.80-5.20); White Blood Cell Count 11.11 K/mm3 (4.00-11.30)
[2022-01-12 10:15] LABS: Bun/Creatinine Ratio 22.7 (12.0-20.0); Calcium, Blood 8.3 mg/dL (8.5-10.1); Creatinine, Blood 0.53 mg/dL (0.40-1.00); Potassium, Blood 4.4 mmol/L (3.5-5.5)
== END ==
LOC: LAB RH 09:15 → EDSTATUS 10:02
PROVIDERS: Internal Medicine
DX: N39.0 Urinary tract infection, site not specified (principal)
CPT/HCPCS: 80048; 85025

== ENCOUNTER 2022-03-02 16:35 | Emergency (ER) | payer OTHER ==
[~2022-03-02] VITALS: Ht 172.7 cm; Wt 166.9 kg
[2022-03-02 17:11] LABS: BASOPHILS ABSOLUTE AUTO 0.04 K/mm3 (0.00-0.23); BASOPHILS PERCENT AUTO 0 % (0-2); EOSINOPHILS ABSOLUTE AUTO 0.26 K/mm3 (0.00-0.68); EOSINOPHILS PERCENT AUTO 3 % (0-6); Hematocrit 39.6 % (33.0-51.0); Hemoglobin 10.5 g/dL (11.5-16.0); IMMATURE GRAN ABSOLUTE AUTO 0.05 K/mm3 (0.00-0.10); IMMATURE GRAN PERCENT AUTO 1 % (0-1); LYMPHOCYTES ABSOLUTE AUTO 1.51 K/mm3 (0.84-5.20); LYMPHOCYTES PERCENT AUTO 15 % (21-46); MONOCYTES ABSOLUTE AUTO 0.89 K/mm3 (0.16-1.47); MONOCYTES PERCENT AUTO 9 % (4-13); Mean Corpuscular HGB 19.9 pg (26.0-34.0); Mean Corpuscular HGB Conc 26.5 g/dL (31.5-36.5); Mean Corpuscular Volume 75 fL (80-100); Mean Platelet Volume 9.6 fL (9.1-12.4); NEUTROPHILS ABSOLUTE AUTO 7.42 K/mm3 (1.96-9.15); NEUTROPHILS PERCENT AUTO 73 % (41-73); Platelet Count 328 K/mm3 (150-400); RDW Coefficient Variation 21.3 % (11.7-14.2); RDW Standard Deviation 56.8 fL (35.1-46.3); Red Blood Cell Count 5.27 M/mm3 (3.80-5.20); White Blood Cell Count 10.17 K/mm3 (4.00-11.30)
[2022-03-02 17:22] LABS: Albumin, Blood 2.9 g/dL (3.4-5.0); Albumin/Globulin Ratio 0.6 (0.8-1.8); Bilirubin, Total 0.2 mg/dL (0.1-1.0); Bun/Creatinine Ratio 16.2 (12.0-20.0); Calcium, Blood 8.3 mg/dL (8.5-10.1); Creatinine, Blood 0.56 mg/dL (0.40-1.00); Globulin, Blood 4.6 g/dL (2.2-4.0); Potassium, Blood 4.1 mmol/L (3.5-5.5); Total Protein, Blood 7.5 g/dL (6.4-8.2)
[2022-03-02 18:28] LABS: PCO2 Arterial 82.4 mmHg (35-45); PO2 Arterial 81.4 mmHg (80-100)
[2022-03-02] MEDS ORDERED: ACET325 PO (19:30)
[2022-03-02] MEDS ORDERED: BACL10 PO (19:33)
== END 2022-03-02 19:55 | disposition home or self-care (01) ==
LOC: ER 16:35
PROVIDERS: Student in an Organized Health Care Education/Training Program
DX: J18.9 Pneumonia, unspecified organism (principal); Z79.01 Long term (current) use of anticoagulants; Z79.899 Other long term (current) drug therapy; Z87.891 Personal history of nicotine dependence
CPT/HCPCS: 36415; 36600; 71045; 80053; 82803; 85025

== ENCOUNTER → 2022-03-25 | Outpatient (CLI) | payer OTHER ==
[~2022-03-25] MED LIST changes: +ACET325 PO; +BACL10 PO
[2022-03-25 23:22] LABS: Appearance, Urine Hazy (Clear); Bilirubin, Urine Neg (Neg); Blood, Urine 5+ (Neg); Color, Urine Yellow (P-Yellow); Glucose Qualitative, Urine Neg (Neg); Ketones, Urine Neg (Neg); Leukocyte Esterase, Urine 1+ (Neg); Nitrite, Urine Neg (Neg); Protein, Urine 2+ (Neg); Urobilinogen, Urine 1+ (Normal)
[2022-03-25 23:41] LABS: Bacteria Many /hpf; Red Blood Cells, Urine 25-50 /hpf (0-2); Squamous Epithelial Cells Few /hpf (Few)
[2022-03-25 23:42] LABS: Amorphous Light (0-Heavy)
== END | disposition home or self-care (01) ==
LOC: EDSTATUS 08:31 → LAB RH 22:56
PROVIDERS: Internal Medicine
DX: Z23 Encounter for immunization (principal); M24.561 Contracture, right knee; E66.01 Morbid (severe) obesity due to excess calories; M19.90 Unspecified osteoarthritis, unspecified site; F32.9 Major depressive disorder, single episode, unspecified; D64.9 Anemia, unspecified; M62.81 Muscle weakness (generalized); R26.89 Other abnormalities of gait and mobility; M79.7 Fibromyalgia; J30.2 Other seasonal allergic rhinitis; L30.9 Dermatitis, unspecified; R60.0 Localized edema; I26.99 Other pulmonary embolism without acute cor pulmonale; Z74.1 Need for assistance with personal care
CPT/HCPCS: 81001; 87086

== ENCOUNTER → 2022-03-30 | Outpatient (CLI) | payer OTHER | END | disposition home or self-care (01) | LOC: EDSTATUS 09:19 → LAB RH 11:13 | DX: E72.20 Disorder of urea cycle metabolism, unspecified (principal) | CPT/HCPCS: 82140 ==

== ENCOUNTER → 2022-04-30 | Outpatient (CLI) | payer OTHER ==
[2022-04-30 20:14] LABS: Creatinine, Blood 0.47 mg/dL (0.40-1.00); Potassium, Blood 3.9 mmol/L (3.5-5.5)
== END ==
LOC: LAB RH 13:34 → EDSTATUS 14:24
PROVIDERS: Internal Medicine
DX: E72.20 Disorder of urea cycle metabolism, unspecified (principal)
CPT/HCPCS: 80048; 82140

== ENCOUNTER → 2022-05-20 | Outpatient (CLI) | payer OTHER | LOC: EDSTATUS 09:38 → LAB RH 10:35 | DX: E72.20 Disorder of urea cycle metabolism, unspecified (principal) | CPT/HCPCS: 82140 ==

== ENCOUNTER → 2022-07-24 | Outpatient (CLI) | payer OTHER ==
[2022-07-24 14:07] LABS: International Normalized Ratio 1.83; Prothrombin Time Results 18.5 Sec (9.7-11.5)
== END | disposition home or self-care (01) ==
LOC: LAB RH 12:20 → EDSTATUS 14:51
PROVIDERS: Family Medicine
DX: I26.99 Other pulmonary embolism without acute cor pulmonale (principal)
CPT/HCPCS: 85610

== ENCOUNTER → 2022-11-17 | Outpatient (CLI) | payer OTHER ==
[~2022-11-17] MED LIST changes: +ARTIFICIAL TEAR15 M2 BOTHEYES; +BISA10S PR; +BUSPIRONE HCL7.5 M1 PO; +CONSTULOSE10 GM/15 M PO; +DULO60 PO; +ELIQUIS5 M2 PO; +OXAYDO5 M2 PO; +Percocet 10-321 EACH PO; -WARF3; +WARF4 PO
[2022-11-17 21:39] LABS: Hemoglobin 8.9 g/dL (11.5-16.0)
== END | disposition home or self-care (01) ==
LOC: EDSTATUS 10:39 → LAB RH 21:32 → LAB QU 21:32
DX: I26.99 Other pulmonary embolism without acute cor pulmonale (principal); D64.9 Anemia, unspecified
CPT/HCPCS: 85014; 85018

== ENCOUNTER 2023-02-08 19:07 | Inpatient (IN) | payer OTHER ==
[~2023-02-08] VITALS: Ht 172.7 cm; Wt 174.2 kg
[2023-02-08 19:42] LABS: BASOPHILS ABSOLUTE AUTO 0.03 K/mm3 (0.00-0.23); BASOPHILS PERCENT AUTO 0 % (0-2); EOSINOPHILS ABSOLUTE AUTO 0.23 K/mm3 (0.00-0.68); EOSINOPHILS PERCENT AUTO 2 % (0-6); Hematocrit 36.5 % (33.0-51.0); Hemoglobin 10.6 g/dL (11.5-16.0); IMMATURE GRAN ABSOLUTE AUTO 0.04 K/mm3 (0.00-0.10); IMMATURE GRAN PERCENT AUTO 0 % (0-1); LYMPHOCYTES ABSOLUTE AUTO 1.78 K/mm3 (0.84-5.20); LYMPHOCYTES PERCENT AUTO 15 % (21-46); MONOCYTES ABSOLUTE AUTO 0.75 K/mm3 (0.16-1.47); MONOCYTES PERCENT AUTO 6 % (4-13); Mean Corpuscular HGB 25.9 pg (26.0-34.0); Mean Corpuscular Volume 89 fL (80-100); NEUTROPHILS ABSOLUTE AUTO 9.07 K/mm3 (1.96-9.15); NEUTROPHILS PERCENT AUTO 76 % (41-73); Platelet Count 259 K/mm3 (150-400); RDW Coefficient Variation 16.3 % (11.7-14.2); RDW Standard Deviation 53.4 fL (35.1-46.3)
[2023-02-08 20:01] LABS: Albumin, Blood 2.9 g/dL (3.4-5.0); Albumin/Globulin Ratio 0.5 (0.8-1.8); Bilirubin, Total 0.2 mg/dL (0.1-1.0); Bun/Creatinine Ratio 13.2 (12.0-20.0); Calcium, Blood 8.6 mg/dL (8.5-10.1); Creatinine, Blood 0.76 mg/dL (0.40-1.00); Globulin, Blood 5.4 g/dL (2.2-4.0); Potassium, Blood 3.8 mmol/L (3.5-5.5); Total Protein, Blood 8.3 g/dL (6.4-8.2)
[2023-02-08] MEDS ORDERED: MIRALAX17 GM PO (21:37)
[2023-02-08] MEDS ORDERED: OXYC10TA19 PO (21:38)
[2023-02-08] MEDS ORDERED: ZYRTEC10 M2 PO (21:39)
[2023-02-08] MEDS ORDERED: OMEP20ER PO (21:40)
[2023-02-08] MEDS ORDERED: BUSP10 PO (21:41)
[2023-02-08 23:08] LABS: Adenovirus Not Detected (NOT DETECT); Bordetella pertussis Not Detected (NOT DETECT); Chlamydophila pneumoniae Not Detected (NOT DETECT); Coronavirus 229E Not Detected (NOT DETECT); Coronavirus HKU1 Not Detected (NOT DETECT); Coronavirus NL63 Not Detected (NOT DETECT); Coronavirus OC43 Not Detected (NOT DETECT); Human Metapneumovirus Not Detected (NOT DETECT); Human Rhinovirus/Enterovirus Not Detected (NOT DETECT); Influenza A/2009-H1 Not Detected (NOT DETECT); Influenza A/H1 Not Detected (NOT DETECT); Influenza A/H3 Not Detected (NOT DETECT); Influenza B Not Detected (NOT DETECT); Mycoplasma pneumoniae Not Detected (NOT DETECT); Parainfluenza Virus 1 Not Detected (NOT DETECT); Parainfluenza Virus 2 Not Detected (NOT DETECT); Parainfluenza Virus 3 Not Detected (NOT DETECT); Parainfluenza Virus 4 Not Detected (NOT DETECT); Respiratory Syncytial Virus Not Detected (NOT DETECT); SARS-Cov-2 (COVID-19), BioFire Not Detected (NOT DETECT)
[2023-02-09 00:02] VITALS: BP 174/77
[2023-02-09 00:40] LABS: Base Excess Venous 20.4 mmol/L; Bicarbonate Venous 42.2 mmol/L (24.0-30.0); PCO2 Venous 54.9 mmHg (38-42); pH Blood Venous 7.51 (7.34-7.37)
[2023-02-09 04:41] VITALS: BP 171/69
[2023-02-09 04:52] LABS: BASOPHILS ABSOLUTE AUTO 0.04 K/mm3 (0.00-0.23); BASOPHILS PERCENT AUTO 0 % (0-2); EOSINOPHILS ABSOLUTE AUTO 0.19 K/mm3 (0.00-0.68); EOSINOPHILS PERCENT AUTO 2 % (0-6); Hematocrit 34.3 % (33.0-51.0); Hemoglobin 10.1 g/dL (11.5-16.0); IMMATURE GRAN ABSOLUTE AUTO 0.05 K/mm3 (0.00-0.10); IMMATURE GRAN PERCENT AUTO 1 % (0-1); LYMPHOCYTES ABSOLUTE AUTO 1.64 K/mm3 (0.84-5.20); LYMPHOCYTES PERCENT AUTO 16 % (21-46); MONOCYTES ABSOLUTE AUTO 0.67 K/mm3 (0.16-1.47); MONOCYTES PERCENT AUTO 6 % (4-13); Mean Corpuscular HGB Conc 29.4 g/dL (31.5-36.5); Mean Corpuscular Volume 88 fL (80-100); Mean Platelet Volume 9.6 fL (9.1-12.4); NEUTROPHILS ABSOLUTE AUTO 7.99 K/mm3 (1.96-9.15); NEUTROPHILS PERCENT AUTO 76 % (41-73); Platelet Count 220 K/mm3 (150-400); RDW Coefficient Variation 16.2 % (11.7-14.2); RDW Standard Deviation 52.1 fL (35.1-46.3); Red Blood Cell Count 3.89 M/mm3 (3.80-5.20); White Blood Cell Count 10.58 K/mm3 (4.00-11.30)
[2023-02-09 05:26] LABS: Albumin, Blood 2.8 g/dL (3.4-5.0); Anion Gap 2 mmol/L (6-16); Blood Urea Nitrogen 9 mg/dL (8-24); Bun/Creatinine Ratio 13.1 (12.0-20.0); CO2, Blood 43 mmol/L (21-32); Calcium, Blood 8.6 mg/dL (8.5-10.1); Chloride, Blood 98 mmol/L (98-108); Creatinine, Blood 0.69 mg/dL (0.40-1.00); Glomerular Filtration Rate 102 (60-); Glucose, Blood 151 mg/dL (70-99); Magnesium, Blood 2.3 mg/dL (1.6-2.4); Phosphorus, Blood 3.7 mg/dL (2.5-4.9); Potassium, Blood 3.6 mmol/L (3.5-5.5); Sodium, Blood 143 mmol/L (136-145)
--- NOTE | 2023-02-09 06:02 | NUR ---
SHIFT SUMMARY PT CONFUSED, DISORIENTED TO PLACE, TIME, AND SITUATION. PT ONLY ABLE TO TOLERATE CPAP FOR 20-30 MINS, PLACED ON 4L NC REMAINDER OF NIGHT WITH O2 SATS 92% AND ABOVE.
[2023-02-09 07:00] VITALS: BP 177/78
[2023-02-09 15:21] VITALS: BP 167/86
[2023-02-09 19:19] VITALS: BP 176/82
--- NOTE | 2023-02-09 19:45 | NUR ---
SHIFT SUMMARY PT AWAKE AT START OF SHIFT, LF, WATCHING TV. PER REPORT, PT CONFUSED ON ADMIT, BUT NOW A&O. LACTULOSE GIVEN PER EMAR. PT HAVING BM'S; INCONTINENT OF BOWEL AND BLADDER. PT CLEANED AND REPOSITIONED THRU OUT THE SHIFT. RLE WITH CONTRACTURE. L ARM WITH LIMITED MOBILITY. PT NOW BACK TO BASELINE RA @ 3L O2 WITH BIOX AT 96%. LUNG SCAN CANCELED D/T PT'S OBESITY. DR MARSH IN TO SEE PT AND DISCUSS PLAN OF CARE. PT'S SISTER HERE THIS AM AND STAYED MOST OF THE DAY. SEVERAL OTHER VISITORS HERE WELL OFF AND ON. MEDICATED FOR C/O BACK AND LEG PAIN, PER EMAR. PT RESTING QUIETLY THIS EVENING. CALL LT IN REACH.
[2023-02-10 03:09] VITALS: BP 169/83
--- NOTE | 2023-02-10 05:01 | NUR ---
SHIFT SUMMARY PRN PAIN MEDICATION GIVEN X2 PER PT REQUEST WITH POSITIVE EFFECT. PT NOW AAOX3 AND NO EPISODES OF CONFUSION ALL SHIFT. PT WAS NOT ON BIPAP ALL NIGHT SO SHE DID DESAT TO 84% ON THE 3L NC, INCREASED TO 4L NC AND O2 SATS 92% AND HIGHER REMAINDER OF NIGHT. PT DECREASED BACK TO 3L NC SOON AWAKE AND MAINTAINING O2 SATS OF 92% AND HIGHER
[2023-02-10 07:16] VITALS: BP 163/79
[2023-02-10 13:10] LABS: SARS-Cov-2 (COVID-19) PCR, MMC NEGATIVE (NEGATIVE)
--- NOTE | 2023-02-10 15:54 | NUR ---
PT DISCHARGING BACK TO [facility]. IV REMOVED, PERSONAL BELONGINGS SENT WITH PATIENT. REPORT CALLED TO NURSE AT [facility]. DISCHARGE PACKET SENT WITH TRANSPORT. PT TRANSPORTED VIA [facility].
== END 2023-02-10 15:52 | DRG 441 ==
LOC: ER 19:07 → MEDS 19:08 → ENPENDDIS 02-10 12:01 → MEDS 02-10 15:52
PROVIDERS: Emergency Medicine; Family Medicine; Internal Medicine; ADMIT Internal Medicine
PROC: 3E02340 Introduction of Influenza Vaccine into Muscle, Percutaneous Approach (ICD-10-PCS; 2023-02-08)
PROC: 5A09357 Assistance with Respiratory Ventilation, Less than 24 Consecutive Hours, Continuous Positive Airway Pressure (ICD-10-PCS; principal; 2023-02-09)
DX: K76.82 Hepatic encephalopathy (principal); J96.21 Acute and chronic respiratory failure with hypoxia; E66.2 Morbid (severe) obesity with alveolar hypoventilation; Z68.43 Body mass index [BMI] 50.0-59.9, adult; K43.9 Ventral hernia without obstruction or gangrene; G43.909 Migraine, unspecified, not intractable, without status migrainosus; Z11.52 Encounter for screening for COVID-19; D64.9 Anemia, unspecified; M19.90 Unspecified osteoarthritis, unspecified site; G89.4 Chronic pain syndrome; I50.9 Heart failure, unspecified; M79.7 Fibromyalgia; T47.3X6A Underdosing of saline and osmotic laxatives, initial encounter; Z91.138 Patient's unintentional underdosing of medication regimen for other reason; Z86.711 Personal history of pulmonary embolism; Z86.718 Personal history of other venous thrombosis and embolism; Z79.01 Long term (current) use of anticoagulants; Z99.81 Dependence on supplemental oxygen; Z87.891 Personal history of nicotine dependence; Z79.891 Long term (current) use of opiate analgesic; Z23 Encounter for immunization; Z74.01 Bed confinement status
CPT/HCPCS: 0202U; 36415; 71045; 80053; 80069; 82140; 82803; 83605; 83735; 83880; 84145; 84443; 85025; 85379; 93005; 93010; 94660; 94762; 99285-25; A9270; U0002

== ENCOUNTER 2023-02-20 23:04 | Observation (INO) | payer OTHER ==
[~2023-02-20] VITALS: Ht 170.2 cm; Wt 200.0 kg
[~2023-02-20 23:04] MED LIST changes: +BUSP10 PO; +OXYC10TA19 PO; +ZYRTEC10 M2 PO
[2023-02-20 23:33] LABS: BASOPHILS ABSOLUTE AUTO 0.04 K/mm3 (0.00-0.23); BASOPHILS PERCENT AUTO 0 % (0-2); EOSINOPHILS ABSOLUTE AUTO 0.19 K/mm3 (0.00-0.68); EOSINOPHILS PERCENT AUTO 2 % (0-6); Hematocrit 35.5 % (33.0-51.0); Hemoglobin 10.2 g/dL (11.5-16.0); IMMATURE GRAN ABSOLUTE AUTO 0.07 K/mm3 (0.00-0.10); IMMATURE GRAN PERCENT AUTO 1 % (0-1); LYMPHOCYTES ABSOLUTE AUTO 1.83 K/mm3 (0.84-5.20); LYMPHOCYTES PERCENT AUTO 18 % (21-46); MONOCYTES ABSOLUTE AUTO 0.71 K/mm3 (0.16-1.47); MONOCYTES PERCENT AUTO 7 % (4-13); Mean Corpuscular HGB Conc 28.7 g/dL (31.5-36.5); Mean Corpuscular Volume 91 fL (80-100); Mean Platelet Volume 9.9 fL (9.1-12.4); NEUTROPHILS ABSOLUTE AUTO 7.55 K/mm3 (1.96-9.15); NEUTROPHILS PERCENT AUTO 73 % (41-73); Platelet Count 254 K/mm3 (150-400); RDW Coefficient Variation 15.9 % (11.7-14.2); RDW Standard Deviation 52.9 fL (35.1-46.3); Red Blood Cell Count 3.92 M/mm3 (3.80-5.20); White Blood Cell Count 10.39 K/mm3 (4.00-11.30)
[2023-02-20 23:55] LABS: Alanine Aminotransfer (ALT/SGP 25 U/L (12-78); Albumin, Blood 2.8 g/dL (3.4-5.0); Albumin/Globulin Ratio 0.5 (0.8-1.8); Alk Phos 120 U/L (50-136); Anion Gap Unable to Calculate mmol/L (6-16); Aspartate Aminotrans (AST/SGOT 29 U/L (12-37); Bilirubin, Total 0.2 mg/dL (0.1-1.0); Blood Urea Nitrogen 9 mg/dL (8-24); Bun/Creatinine Ratio 13.8 (12.0-20.0); CO2, Blood 44 mmol/L (21-32); Calcium, Blood 8.7 mg/dL (8.5-10.1); Chloride, Blood 98 mmol/L (98-108); Creatinine, Blood 0.65 mg/dL (0.40-1.00); Globulin, Blood 5.5 g/dL (2.2-4.0); Glomerular Filtration Rate 103 (60-); Glucose, Blood 139 mg/dL (70-99); Sodium, Blood 141 mmol/L (136-145); Total Protein, Blood 8.3 g/dL (6.4-8.2)
[2023-02-21 00:17] LABS: Magnesium, Blood 2.3 mg/dL (1.6-2.4)
[2023-02-21 00:45] LABS: Phosphorus, Blood 3.4 mg/dL (2.5-4.9)
[2023-02-21 00:46] LABS: Source, Urine Voided
[2023-02-21 00:52] LABS: Bilirubin, Urine Neg (Neg); Blood, Urine 5+ (Neg); Glucose Qualitative, Urine Neg (Neg); Ketones, Urine Neg (Neg); Leukocyte Esterase, Urine Neg (Neg); Nitrite, Urine Neg (Neg); Protein, Urine 2+ (Neg); Specific Gravity, Urine 1.025 (1.003-1.022); Urobilinogen, Urine NORM (Normal)
[2023-02-21 01:03] LABS: Appearance, Urine Clear (Clear); Color, Urine Yellow (P-Yellow)
[2023-02-21 01:04] LABS: Bacteria Few /hpf; Squamous Epithelial Cells Mod /hpf (Few); White Blood Cells, Urine 0-2 /hpf (0-5)
[2023-02-21 01:31] LABS: Base Excess Venous 22.3 mmol/L; Bicarbonate Venous 42.6 mmol/L (24.0-30.0); PCO2 Venous 101 mmHg (38-42); pH Blood Venous 7.29 (7.34-7.37)
[2023-02-21 02:05] LABS: Influenza A, PCR NEGATIVE (NEGATIVE); Influenza B, PCR NEGATIVE (NEGATIVE); Resp Syncytial Virus, PCR NEGATIVE (NEGATIVE); SARS-Cov-2 (COVID-19) PCR, MMC NEGATIVE (NEGATIVE)
[2023-02-21 05:31] VITALS: BP 135/70
[2023-02-21 06:05] LABS: BASOPHILS ABSOLUTE AUTO 0.04 K/mm3 (0.00-0.23); BASOPHILS PERCENT AUTO 0 % (0-2); EOSINOPHILS ABSOLUTE AUTO 0.13 K/mm3 (0.00-0.68); EOSINOPHILS PERCENT AUTO 1 % (0-6); Hemoglobin 10.3 g/dL (11.5-16.0); IMMATURE GRAN ABSOLUTE AUTO 0.09 K/mm3 (0.00-0.10); IMMATURE GRAN PERCENT AUTO 1 % (0-1); LYMPHOCYTES ABSOLUTE AUTO 1.34 K/mm3 (0.84-5.20); LYMPHOCYTES PERCENT AUTO 12 % (21-46); MONOCYTES ABSOLUTE AUTO 0.74 K/mm3 (0.16-1.47); MONOCYTES PERCENT AUTO 6 % (4-13); Mean Corpuscular HGB 25.8 pg (26.0-34.0); Mean Corpuscular HGB Conc 27.8 g/dL (31.5-36.5); Mean Corpuscular Volume 93 fL (80-100); Mean Platelet Volume 10.6 fL (9.1-12.4); NEUTROPHILS ABSOLUTE AUTO 9.21 K/mm3 (1.96-9.15); NEUTROPHILS PERCENT AUTO 80 % (41-73); Platelet Count 246 K/mm3 (150-400); RDW Standard Deviation 54.4 fL (35.1-46.3); Red Blood Cell Count 3.99 M/mm3 (3.80-5.20); White Blood Cell Count 11.55 K/mm3 (4.00-11.30)
--- NOTE | 2023-02-21 06:27 | NUR ---
PERFORMED BEDSIDE SWALLOW EVALUATION PER PROVIDER ORDER. PT HEAD RAISED TO 90 DEGRESS AND SMALL SIPS OF WATER GIVEN WITHOUT STRAW. PT ABLE TO SWALLOW WATER WITHOUT ANY COUGHING, CHOKING, OR ASPIRATION.
[2023-02-21 06:51] LABS: Magnesium, Blood 2.4 mg/dL (1.6-2.4)
[2023-02-21 06:52] LABS: Albumin, Blood 2.9 g/dL (3.4-5.0); Albumin/Globulin Ratio 0.5 (0.8-1.8); Bilirubin, Total 0.3 mg/dL (0.1-1.0); Bun/Creatinine Ratio 13.4 (12.0-20.0); Calcium, Blood 8.8 mg/dL (8.5-10.1); Creatinine, Blood 0.67 mg/dL (0.40-1.00); Globulin, Blood 5.5 g/dL (2.2-4.0); Total Protein, Blood 8.4 g/dL (6.4-8.2)
--- NOTE | 2023-02-21 07:28 | NUR ---
SHIFT SUMMARY NOC ADMIT FROM ED WITH AMS/TME. PT A/O 2-3. GOES FROM ORIENTED TO HIGHLY CONFUSED QUICKLY. PT IS LIFT PT AT BASELINE, PT WILL BE MOVING TO LIFT ROOM DURING DAY SHIFT. ADMIT SKIN ASSESSMENT WITH 2ND RN NOT COMPLETED DUE TO PT NOT TOLERATING BEING MOVED AND DESATURATING INTO 70'S-80'S AFTER BEING MOVED FROM ED [facility]. PT HAS VISIBLE MUSCLE SPASMS FROM NOT TAKING EVENING BACLOFEN LAST NIGHT. NOW DOSE ORDERED BY HOSPITALIST. PT HAS PUREWICK IN PLACE DUE TO INCONTINENCE. CHANGE OF SHIFT REPORT GIVEN TO DAY RN WHO ASSUMED CARE.
[2023-02-21 08:25] LABS: Base Excess Venous 23.9 mmol/L; Bicarbonate Venous 44.3 mmol/L (24.0-30.0); PCO2 Venous 94.6 mmHg (38-42); pH Blood Venous 7.33 (7.34-7.37)
[2023-02-21 08:27] VITALS: BP 135/76
[2023-02-21 15:26] LABS: Base Excess Venous 24.4 mmol/L; PCO2 Venous 63.4 mmHg (38-42); pH Blood Venous 7.49 (7.34-7.37)
[2023-02-21 15:41] VITALS: BP 139/67
--- NOTE | 2023-02-21 17:17 | NUR ---
2ND RN SKIN CHECK WITH BENJAMIN OCHOA, COMPLETED. REDNESS TO THE GROIN AREA, POWDER APPLIED. NO NEW WOUNDS DETECTED.
--- NOTE | 2023-02-21 17:49 | NUR ---
SHIFT SUMMARY PT BEGAN THE SHIFT AOX2-3, WAXING AND WANING. AT THIS TIME, SHE IS AOX4, ON 3L NC (HER BASELINE). USED THE CPAP PART OF THE DAY, TOLERATED IT WELL. SISTER IS AT THE BS. PT'S APPETITE IS GOOD, DRINKING WELL. NO COMPLAINTS OF P/N/V/D/CP OR PRESSURE. PT ON BEDREST, BARIATRIC BED IN THE ROOM. PT IS TO DISCHARGE TONIGHT BACK TO [facility]. REPORT GIVEN TO NURSE AT [facility]. CALL LIGHT WITHIN REACH, BED IN THE LOWEST POSITION. WILL REPORT TO ONCOMING NURSE.
--- NOTE | 2023-02-21 19:53 | NUR ---
DISCHARGE NOTE TRANSPORT ARRIVED TO TAKE PATIENT TO FACILITY. PORTABLE O2 IN PLACE, PERSONAL POSSESSIONS WITH PT. PAPERWORK GIVEN TO TRANSPORT PERSONEL. HANDOFF GIVEN TO FACILITY BY PREVIOUS SHIFT NURSE.
[2023-02-22] MEDS ORDERED: HYDHCL25 PO (02:46)
== END 2023-02-21 19:35 ==
LOC: ER 23:04 → MEDS 23:05
PROVIDERS: Emergency Medicine; Internal Medicine; Student in an Organized Health Care Education/Training Program; ADMIT Student in an Organized Health Care Education/Training Program
DX: G93.41 Metabolic encephalopathy (principal); T42.6X5A Adverse effect of other antiepileptic and sedative-hypnotic drugs, initial encounter; T42.8X5A Adverse effect of antiparkinsonism drugs and other central muscle-tone depressants, initial encounter; T43.595A Adverse effect of other antipsychotics and neuroleptics, initial encounter; T39.95XA Adverse effect of unspecified nonopioid analgesic, antipyretic and antirheumatic, initial encounter; J96.21 Acute and chronic respiratory failure with hypoxia; J96.22 Acute and chronic respiratory failure with hypercapnia; E66.2 Morbid (severe) obesity with alveolar hypoventilation; E72.20 Disorder of urea cycle metabolism, unspecified; G89.4 Chronic pain syndrome; Z86.718 Personal history of other venous thrombosis and embolism; Z99.81 Dependence on supplemental oxygen; Z79.899 Other long term (current) drug therapy; Z79.01 Long term (current) use of anticoagulants; Z87.891 Personal history of nicotine dependence; Z68.41 Body mass index [BMI] 40.0-44.9, adult; Z74.01 Bed confinement status
CPT/HCPCS: 0241U; 36415; 70450; 71045; 80053; 81001; 82140; 82803; 83605; 83735; 84100; 84145; 84443; 84484; 85025; 93005; 93010; 94660; 94762; 99285-25; A9270; G0378

== ENCOUNTER 2023-02-22 00:48 | Emergency (ER) | payer OTHER ==
[~2023-02-22] VITALS: Ht 160 cm; Wt 190.5 kg
[2023-02-22] MEDS ORDERED: HYDHCL25 PO (02:46)
[2023-02-22 06:30] VITALS: BP 153/66
== END 2023-02-22 06:50 | disposition home or self-care (01) ==
LOC: ER 00:48
DX: J96.11 Chronic respiratory failure with hypoxia (principal); F41.0 Panic disorder [episodic paroxysmal anxiety]; E66.9 Obesity, unspecified; Z68.45 Body mass index [BMI] 70 or greater, adult; Z99.89 Dependence on other enabling machines and devices; Z79.01 Long term (current) use of anticoagulants
CPT/HCPCS: 94660; 96374; 99284-25; J2060

== ENCOUNTER 2023-02-24 17:13 | Inpatient (IN) | payer OTHER ==
[~2023-02-24] VITALS: Ht 170.2 cm; Wt 173.7 kg
[~2023-02-24 17:13] MED LIST changes: +HYDHCL25 PO
[2023-02-24 17:48] LABS: Base Excess Venous 25.1 mmol/L; Bicarbonate Venous 46.5 mmol/L (24.0-30.0); PCO2 Venous 67.8 mmHg (38-42); pH Blood Venous 7.47 (7.34-7.37)
[2023-02-24 18:25] LABS: Albumin, Blood 2.9 g/dL (3.4-5.0); Albumin/Globulin Ratio 0.5 (0.8-1.8); Bilirubin, Total 0.4 mg/dL (0.1-1.0); Bun/Creatinine Ratio 19.7 (12.0-20.0); Calcium, Blood 8.9 mg/dL (8.5-10.1); Creatinine, Blood 0.56 mg/dL (0.40-1.00); Globulin, Blood 5.5 g/dL (2.2-4.0); Potassium, Blood 4.3 mmol/L (3.5-5.5); Total Protein, Blood 8.4 g/dL (6.4-8.2)
[2023-02-24] MEDS ORDERED: Acetaminophen650 M1 PO (18:46)
[2023-02-24 18:47] LABS: BASOPHILS ABSOLUTE AUTO 0.05 K/mm3 (0.00-0.23); BASOPHILS PERCENT AUTO 1 % (0-2); EOSINOPHILS ABSOLUTE AUTO 0.14 K/mm3 (0.00-0.68); EOSINOPHILS PERCENT AUTO 1 % (0-6); Hematocrit 34.9 % (33.0-51.0); Hemoglobin 10.1 g/dL (11.5-16.0); IMMATURE GRAN ABSOLUTE AUTO 0.13 K/mm3 (0.00-0.10); IMMATURE GRAN PERCENT AUTO 1 % (0-1); LYMPHOCYTES ABSOLUTE AUTO 1.32 K/mm3 (0.84-5.20); LYMPHOCYTES PERCENT AUTO 12 % (21-46); MONOCYTES ABSOLUTE AUTO 0.71 K/mm3 (0.16-1.47); MONOCYTES PERCENT AUTO 7 % (4-13); Mean Corpuscular HGB 26.2 pg (26.0-34.0); Mean Corpuscular HGB Conc 28.9 g/dL (31.5-36.5); Mean Corpuscular Volume 90 fL (80-100); NEUTROPHILS ABSOLUTE AUTO 8.58 K/mm3 (1.96-9.15); NEUTROPHILS PERCENT AUTO 78 % (41-73); RDW Coefficient Variation 16.4 % (11.7-14.2); RDW Standard Deviation 53.6 fL (35.1-46.3); Red Blood Cell Count 3.86 M/mm3 (3.80-5.20); White Blood Cell Count 10.93 K/mm3 (4.00-11.30)
[2023-02-24 19:03] LABS: Influenza A, PCR NEGATIVE (NEGATIVE); Influenza B, PCR NEGATIVE (NEGATIVE); Resp Syncytial Virus, PCR NEGATIVE (NEGATIVE); SARS-Cov-2 (COVID-19) PCR, MMC NEGATIVE (NEGATIVE)
--- NOTE | 2023-02-24 21:48 | NUR ---
REPORT RECIEVED FROM RUBY KATZ RN, AT 2140 AND AWAITING PT T/F TO ROOM 340.
--- NOTE | 2023-02-24 23:00 | NUR ---
PT T/F TO ROOM 340 AT 2200. SHE REQUIRED LIFT FOR T/F FROM [facility] TO BED AND IS BEDREST AT [facility] AT BASELINE. FAMILY ACCOMPANIED HER TO ROOM. PT IS ORIENTED TO SELF AND FAMILY BUT CONFUSED TO SITUATION/EVENT. SHE APPEARS VERY DROWSY, WITHDRAWN AND HAS DIFFICULTY STAYING AWAKE OR FOLLOWING INSTRUCTIONS. SHE ARRIVED ON 4L O2 VIA NC BUT IMMEDIATELY BEGAN TO DESAT TO 70'S% AND FACE BECAME DUSKY/SHERIDAN W/PALE DIAPHORETIC SKIN TO FACE/BODY. SHE DOESN'T TOLERATE REPOSITIONING, TALKING OR EVEN REMOVAL OF O2 FOR SECONDS AT A TIME W/O O2 DESATS TO 70'S-80'S%. RT WAS CONSULTED D/T SPO2 LOW 80'S W/TITRATION UP TO 9L O2 VIA NC. SHE WAS SWITCHED TO 6-10L HF O2 AND STILL BARELY MAINTAINED SPO2 >84%. RT COMMENCED CPAP W/4L O2 BLEED FOR SPO2 88-92% W/CONT BIOX INTACT. RESPS ARE SHALLOW, LABORED AND TACHYPNEIC AND LS ARE DIMINISHED T/O. PT LIKELY TO NEED BIPAP W/REPEAT VBG, PLAN TO ALERT MD. RT REMAINS AT BEDSIDE AT THIS TIME FOR CLOSER MONITORING.
[2023-02-24 23:05] VITALS: BP 176/86
[2023-02-25] VITALS (8 sets, daily range): BP systolic 132–181; BP diastolic 63–93
--- NOTE | 2023-02-25 00:10 | NUR ---
PT CONT'D TO DESAT W/O2 BLEED IN VIA CPAP BUT HAS BEEN DROWSY AND TOLERATING MASK. RT SWITCHED PT TO BIPAP W/4-6L TITRATED O2 BLEED IN TO MAINTAIN SPO2 >88%. PT'S COLOR SEEMS TO BE SLIGHTLY IMPROVING AND RR IS E/U AT THIS TIME. RN STILL UNABLE TO PROVIDE PO MEDS D/T DROWSINESS, AMS, ASP RISK AND IMMEDIATED DESATS IF MASK REMOVED. WILL CONT TO MONITOR. MADE AWARE AND REPEAT VBG RX'D FOR AM. HE ALSO WAS MADE AWARE OF HS MEDS MISSED AND SAID HE'D EVALUATE CHART TO CHANGE MED ROUTES IF POSSIBLE BUT OK'D SKIPPED DOSES AT THIS TIME GIVEN ACUTE RESP DISTRESS.
[2023-02-25 04:16] LABS: Hematocrit 34.3 % (33.0-51.0); Mean Corpuscular HGB 26.2 pg (26.0-34.0); Mean Corpuscular HGB Conc 29.2 g/dL (31.5-36.5); Mean Corpuscular Volume 90 fL (80-100); Mean Platelet Volume 9.8 fL (9.1-12.4); Platelet Count 236 K/mm3 (150-400); RDW Coefficient Variation 16.2 % (11.7-14.2); RDW Standard Deviation 52.6 fL (35.1-46.3); Red Blood Cell Count 3.82 M/mm3 (3.80-5.20); White Blood Cell Count 12.49 K/mm3 (4.00-11.30)
[2023-02-25 04:22] LABS: Base Excess Venous 24.3 mmol/L; Bicarbonate Venous 45.6 mmol/L (24.0-30.0); PCO2 Venous 70.7 mmHg (38-42); pH Blood Venous 7.44 (7.34-7.37)
--- NOTE | 2023-02-25 04:51 | NUR ---
MADE AWARE OF WORSENING VBG. TRANSFER TO PCU ORDER OBTAINED. WILL CALL FOR REPORT WHEN ROOM ASSIGNED.
--- NOTE | 2023-02-25 04:55 | NUR ---
CALLED PT'S SISTER ANA LILIA AND LET HER KNOW THE PATIENT WOULD BE MOVING TO PCU BED ONE.
[2023-02-25 04:58] LABS: Alanine Aminotransfer (ALT/SGP 25 U/L (12-78); Albumin, Blood 2.8 g/dL (3.4-5.0); Albumin/Globulin Ratio 0.5 (0.8-1.8); Alk Phos 114 U/L (50-136); Aspartate Aminotrans (AST/SGOT 18 U/L (12-37); Bilirubin, Total 0.4 mg/dL (0.1-1.0); Blood Urea Nitrogen 11 mg/dL (8-24); Bun/Creatinine Ratio 19.2 (12.0-20.0); Calcium, Blood 8.8 mg/dL (8.5-10.1); Chloride, Blood 97 mmol/L (98-108); Creatinine, Blood 0.57 mg/dL (0.40-1.00); Globulin, Blood 5.4 g/dL (2.2-4.0); Glomerular Filtration Rate 107 (60-); Glucose, Blood 158 mg/dL (70-99); Potassium, Blood 3.8 mmol/L (3.5-5.5); Sodium, Blood 144 mmol/L (136-145); Total Protein, Blood 8.2 g/dL (6.4-8.2)
[2023-02-25 05:01] LABS: Anion Gap Unable to Calculate mmol/L (6-16); CO2, Blood >45 mmol/L (21-32)
[2023-02-25 05:12] LABS: BAND PERCENT MAN 3 % (0-8); BASOPHILS PERCENT MAN 0 % (0-2); EOSINOPHILS PERCENT MAN 0 % (0-6); LYMPHOCYTES ABSOLUTE MAN 0.62 K/mm3 (0.84-5.20); LYMPHOCYTES PERCENT MAN 5 % (21-46); MONOCYTES ABSOLUTE MAN 0.12 K/mm3 (0.16-1.47); MONOCYTES PERCENT MAN 1 % (4-13); MYELOCYTE ABSOLUTE MAN 0.24 K/mm3 (0.00-0.00); MYELOCYTE PERCENT MAN 2 % (0-0); NEUTROPHILS ABSOLUTE MAN 11.49 K/mm3 (1.96-9.15); SEG NEUTROPHILS PERCENT MAN 89 % (41-73); TOTAL CELLS COUNTED 100
--- NOTE | 2023-02-25 05:12 | NUR ---
REPORT PROVIDED TO BEN MCNEALU RN AND PT BEING T/F'D TO PCU 1.
--- NOTE | 2023-02-25 07:45 | NUR ---
ARRIVAL TO PCU NOTE RECEIVED REPORT FROM MED FLOOR RN WILLIAM LIANG AT ~0500, PT SHORTLY ARRIVED TO PCU 1 AT ~0515 THIS AM. A/Ox3-4 AND COOPERATIVE WITH CARE. ANSWERS QUESTIONS APPROPRIATELY AND ABLE TO MAKE HER NEEDS KNOWN. CARDIAC, TELEMETRY SHOWED SR 80-90'S WITH NO C/O CP OR PRESSURE. SBP RANGING IN THE 150'S. RESPIRATORY, PT ARRIVED ON V30 BiPAP MAINTAINING SPO2 88-92%. RESPIRATORY RATE NOTED TO BE IN THE MID 20'S WITH PT C/O SOB. SHALLOW IRREGULAR BREATHS NOTED. RT NOTIFIED BY THIS RN WITH PT BEING EVENTUALLY PLACED ON V60 BiPAP 18/11 30%FiO2. LS VERY DIMINSHED T/O. GI/, PT ARRIVED WITH SOILED ATTENDS AND EXREMELY SOILED LINENS. LINENS REPLACED WITH FRESH ATTENDS AND BED BATH PERFORMED. PURWICK PLACED AND DRAINING YELLOW URINE TO SUCTION. BS PRESENT T/O WITH HEALING SCAR ACROSS MID ABD NOTED. PT REPORTS FROM RECENT ABD HERNIA REPAIR. NS INITIATED PER ORDERS. SEE EMAR FOR ADMINISTRATION DETAILS. GRETEL KAN AT THIS TIME.
--- NOTE | 2023-02-25 09:19 | NUR ---
ATTEMPTED TO TRANSITION PT TO NASAL CANNULA THIS MORNING, THIS WAS UNSUCCESSFUL, RT WAS AT THE BEDSIDE, PT'S SPO2 DROPPED INTO THE LOW 70s WITH NASAL CANNULA IN PLACE. PT WILL BE 100% BIPAP DEPENDANT. MDs ARE AWARE OF THIS, PO MEDICATIONS WILL NOT BE ABLE TO BE GIVEN BECAUSE OF BIPAP DEPENDANCY. CARE TEAM IS AWARE OF THIS. NEW DVT PROPHALAXIS WILL BE CONSIDERED BY CARE TEAM
--- NOTE | 2023-02-25 12:54 | NUR ---
PT REMOVED HER CPAP MASK, HER SPO2 DROPPED QUICKLY WITHIN A MINUTE TO THE 70s. IS MADE AWARE. WE WILL TRY A TRIAL OF NASAL CANNULA OFF OF CPAP LATER THIS AFTERNOON, THIS IS DISCUSSED WITH DR BHAKTA
--- NOTE | 2023-02-25 15:20 | NUR ---
Supportive visit this afternoon. Lots of family at bedside. Offered therapeutic listening and answered questions. Reviewed plan of care and continued supportive visit. Deferred some questions for physician to answer. Family expresses appreciation. Spoke with Primary RN Anna and discussed case. Palliative Care will remain available
--- NOTE | 2023-02-25 18:01 | NUR ---
PT WAS REMOVED FROM BIPAP THIS AFTERNOON FOR ORAL ELIQUIS, SHE WAS ABLE TO STAY AWAKE FOR A SHORT PERIOD OF TIME FOR MEDICATION ADMINISTRATION WITH FREQUENT REDIRECTION TO KEEP EYES OPEN. RT WITH AT BEDSIDE DURING THIS MEDICATION ADMINISTRATION. IT WAS NOTED THAT DESPITE RESPIRATORY RATE NOT CHANGING, MAX O2 VIA NASAL CANNULA, AND SPO2 READING 97% PT'S FACE BECAME CYANOTIC DURING THIS ADMINISTRATION. MD WAS UPDATED ABOUT THIS, A PE STUDY WAS ORDERED AFTER DR CAME TO ROOM FOR RE-ASSESSMENT. THERE WAS NO ASPIRATION, PT WAS ABLE TO MAINTAIN HER AIRWAY WELL. HE HAS HAD VERY SCANT URINE OUTPUT VIA PUREWICK DESPITE FLUIDS INFUSING T/O THE DAY, MD IS ALSO AWARE OF THE SCANT URINE OUTPUT. SHE AWAKENS TO VERBAL STIMULI, SHE IS VERY DROWSY T/O THE DAY, SHE IS ORITENTED TO PLACE, SELF AND FAMILY. SHE WAS TAKEN TO CT FOR PE STUDY THIS EVENING RESULTS HAVE NOT BEEN POSTED AT THIS TIME. VSS. LUNG SOUNDS ARE DIMENISHED T/O ALL LUNG TILLMAN. SHE HAS VERY SHALLOW RESPIRATIONS.
[2023-02-26 00:15] VITALS: BP 154/78
[2023-02-26 03:02] VITALS: BP 158/82
[2023-02-26 04:03] LABS: BASOPHILS ABSOLUTE AUTO 0.03 K/mm3 (0.00-0.23); BASOPHILS PERCENT AUTO 0 % (0-2); EOSINOPHILS ABSOLUTE AUTO 0.04 K/mm3 (0.00-0.68); EOSINOPHILS PERCENT AUTO 0 % (0-6); Hemoglobin 9.5 g/dL (11.5-16.0); IMMATURE GRAN ABSOLUTE AUTO 0.06 K/mm3 (0.00-0.10); IMMATURE GRAN PERCENT AUTO 1 % (0-1); LYMPHOCYTES ABSOLUTE AUTO 1.82 K/mm3 (0.84-5.20); LYMPHOCYTES PERCENT AUTO 17 % (21-46); MONOCYTES ABSOLUTE AUTO 0.88 K/mm3 (0.16-1.47); MONOCYTES PERCENT AUTO 8 % (4-13); Mean Corpuscular HGB 25.7 pg (26.0-34.0); Mean Corpuscular HGB Conc 27.9 g/dL (31.5-36.5); Mean Corpuscular Volume 92 fL (80-100); Mean Platelet Volume 10.9 fL (9.1-12.4); NEUTROPHILS ABSOLUTE AUTO 8.11 K/mm3 (1.96-9.15); NEUTROPHILS PERCENT AUTO 74 % (41-73); Platelet Count 230 K/mm3 (150-400); RDW Coefficient Variation 16.7 % (11.7-14.2); RDW Standard Deviation 55.6 fL (35.1-46.3); White Blood Cell Count 10.94 K/mm3 (4.00-11.30)
--- NOTE | 2023-02-26 04:41 | NUR ---
SHIFT SUMMARY PT A&Ox3, CALLS AND COMMUNICATES NEEDS, COOPERATIVE WITH CARE. BP STABLE, SINUS 70's, DENIES CP/PRESSURE. SpO2> 92% BIPAP 16/7 FiO2 40%, DENIES SOB. INCONTINENT OF URINE AND BOWEL, PUREWICK AND ATTENDS IN PLACE. PT RECEIVED FULL BED CHANGE AND BED BATH THIS SHIFT. ORAL CARE PROVIDED WITH SUCTION. Q2 TURNS PROVIDED. NO OTHER EVENTS, WILL REPORT TO ONCOMING RN.
[2023-02-26 05:12] LABS: Alanine Aminotransfer (ALT/SGP 22 U/L (12-78); Albumin, Blood 2.9 g/dL (3.4-5.0); Albumin/Globulin Ratio 0.6 (0.8-1.8); Alk Phos 103 U/L (50-136); Anion Gap Unable to Calculate mmol/L (6-16); Aspartate Aminotrans (AST/SGOT 18 U/L (12-37); Bilirubin, Total 0.3 mg/dL (0.1-1.0); Blood Urea Nitrogen 14 mg/dL (8-24); Bun/Creatinine Ratio 23.4 (12.0-20.0); Calcium, Blood 8.5 mg/dL (8.5-10.1); Chloride, Blood 101 mmol/L (98-108); Glomerular Filtration Rate 105 (60-); Glucose, Blood 113 mg/dL (70-99); Sodium, Blood 146 mmol/L (136-145); Total Protein, Blood 7.9 g/dL (6.4-8.2)
[2023-02-26 05:13] LABS: CO2, Blood >45 mmol/L (21-32)
[2023-02-26 07:51] VITALS: BP 168/74
--- NOTE | 2023-02-26 09:39 | NUR ---
ASSUMPTION OF CARE THIS RN ASSUMED CARE AT APPROX 0715. PT AOX3. FLAT AFFECT NOTED. LACK OF MOTIVATION TO PARTICIPATE IN CARE NOTED, ENCOURAGING PARTICIPATION TOLERATED. ABLE TO COMMUNICATE NEEDS NEEDED. VSS. BP ELEVATED, SBP 160's. DENIES CHEST PAIN OR PRESSURE. TELEMETRY SHOWING SINUS 70's-80's. RESPIRATORY THERAPIST AT BEDSIDE THIS MORNING FOR ROUNDING. COORDINATED TO ADMINISTER ORAL MEDICATIONS, PROVIDE ORAL/MORNING CARE. ON BIPAP INITIALLY, SATS >90%. WAS ABLE TO TOLERATE BEING OFF OF BIPAP FOR AN EXTENDED PERIOD OF TIME, SWITCHED TO HI FLOW NC, SATS >90%. WAS ABLE TO EAT BREAKFAST, DIET SWITCHED TO MECH SOFT PT DOES NOT HAVE TEETH. CURRENTLY ON HI FLOW NC, PLAN TO ALTERNATE BETWEEN HI FLOW AND BIPAP THROUGHOUT SHIFT. PUREWICK IN PLACE, DRAINING MICHAEL URINE TO SUCTION. LIFT ASSIST FOR MOBILITY, IMMOBILE AT BASELINE, BLE CONTRACTURES. REPOSITIONING TOLERATED. CALL LIGHT IN REACH.
[2023-02-26 11:17] VITALS: BP 137/73
[2023-02-26 16:46] VITALS: BP 158/83
--- NOTE | 2023-02-26 19:12 | NUR ---
END OF SHIFT NOTE NO ACUTE CHANGES SINCE PREVIOUS NOTE. PT REMAINS AOX3. ABLE TO COMMUNICATE NEEDS EFFECTIVELY NEEDED. FAMILY AT BEDSIDE THROUGHOUT SHIFT. VS REMAIN STABLE. TELEMETRY CONTINUING TO SHOW SINUS 70's-80's. BP STABLE. NO REPORT OF CHEST PAIN OR PRESSURE THROUGHOUT SHIFT. WAS ABLE TO TOLERATE HI FLOW NC, AT 40% FIO2, WHILE AWAKE, SATS >90%. ON BIPAP WHILE SLEEPING, FI02 40%. PUREWICK IN PLACE. VOIDING. BM THIS SHIFT. TOTAL CARE, LIFT ASSIST. FREQUENT REPOSITIONING TOLERATED. CALL LIGHT IN REACH. REPORT GIVEN TO NIGHT RN.
[2023-02-26 19:57] VITALS: BP 150/78
[2023-02-27 00:14] VITALS: BP 158/71
[2023-02-27 03:13] VITALS: BP 159/85
[2023-02-27 03:31] LABS: BASOPHILS ABSOLUTE AUTO 0.04 K/mm3 (0.00-0.23); BASOPHILS PERCENT AUTO 0 % (0-2); EOSINOPHILS ABSOLUTE AUTO 0.13 K/mm3 (0.00-0.68); EOSINOPHILS PERCENT AUTO 1 % (0-6); Hematocrit 32.6 % (33.0-51.0); Hemoglobin 9.7 g/dL (11.5-16.0); IMMATURE GRAN PERCENT AUTO 1 % (0-1); LYMPHOCYTES ABSOLUTE AUTO 1.64 K/mm3 (0.84-5.20); LYMPHOCYTES PERCENT AUTO 13 % (21-46); MONOCYTES ABSOLUTE AUTO 0.94 K/mm3 (0.16-1.47); MONOCYTES PERCENT AUTO 7 % (4-13); Mean Corpuscular HGB 26.1 pg (26.0-34.0); Mean Corpuscular HGB Conc 29.8 g/dL (31.5-36.5); Mean Corpuscular Volume 88 fL (80-100); Mean Platelet Volume 10.5 fL (9.1-12.4); NEUTROPHILS ABSOLUTE AUTO 10.13 K/mm3 (1.96-9.15); NEUTROPHILS PERCENT AUTO 78 % (41-73); Platelet Count 229 K/mm3 (150-400); RDW Coefficient Variation 16.8 % (11.7-14.2); RDW Standard Deviation 53.5 fL (35.1-46.3); Red Blood Cell Count 3.72 M/mm3 (3.80-5.20); White Blood Cell Count 12.98 K/mm3 (4.00-11.30)
[2023-02-27 04:02] LABS: Albumin, Blood 2.9 g/dL (3.4-5.0); Albumin/Globulin Ratio 0.6 (0.8-1.8); Bilirubin, Total 0.4 mg/dL (0.1-1.0); Bun/Creatinine Ratio 24.8 (12.0-20.0); Calcium, Blood 8.8 mg/dL (8.5-10.1); Creatinine, Blood 0.57 mg/dL (0.40-1.00); Globulin, Blood 4.9 g/dL (2.2-4.0); Potassium, Blood 3.5 mmol/L (3.5-5.5); Total Protein, Blood 7.8 g/dL (6.4-8.2)
--- NOTE | 2023-02-27 04:41 | NUR ---
SHIFT SUMMARY PT A&Ox3, CALLS AND COMMUNICATES NEEDS, COOPERATIVE WITH CARE. BP STABLE, SINUS 70's, DENIES CP/PRESSURE. SpO2> 92% 3L VIA NC OR BIPAP 16/7 FiO2 35%, DENIES SOB. INCONTINENT OF URINE AND BOWEL, PUREWICK AND ATTENDS IN PLACE. PT RECEIVED FULL BED CHANGE AND BED BATH THIS SHIFT. ORAL CARE PROVIDED WITH SUCTION. Q2 TURNS PROVIDED. PT WITH C/O OF BACK & LEG PAIN, MEDICATED PER EMAR. PT EXPRESSED ANXIETY MULTIPLE TIMES THROUGHOUT SHIFT. NO OTHER EVENTS, WILL REPORT TO ONCOMING RN.
[2023-02-27 08:01] VITALS: BP 158/61
--- NOTE | 2023-02-27 13:36 | NUR ---
Spiritual care visit conducted. Patient is lying in bed and her sister is bedside. Patient admits to being emotionally and physically exhausted from struggle to just exist and wonders if she wants to continue with agressive treatment if her prognosis is her current baseline or below. Patient and sister are tearful at times but state that their hope is in their angel in God and express in their belief, there are glories after . Patient shares her thoughts that she is leaning towards a DNR/DNI status change and possibly comfort measures only. She wants to discuss this with her family and hear from her doctor about what may be ahead for her medically speaking. I normalize her fears and feelings, and provide therapeutic listening, gentle treatment counselor, theological insights and prayer. Patient responded well and stated that she still has more to think about and but feels increased peace in the process and that she appreciated the prayer. I will continue to remain available to patient and family.
--- NOTE | 2023-02-27 14:30 | NUR ---
LATE ENTRY/PCU TRANSFER: 1340: RECEIVED REPORT FROM CHESTER ALEXANDER 1400: RECEIVED PT VIA [facility] BED TRANSFER FROM PCU. IS ON 4 L'S VIA N/C, ON CONT BIOX, SATS 97%, IVF'S AT 75/HR, PUREWICK IN PLACE DRAINING YELLOW URINE, IS A&O X 4. PLEASANT & COOPERATIVE WITH TRANSFER TO UNIT. FAMILY AT BEDSIDE. PT DID C/O PAIN REQUESTED PAIN MEDS. GIVEN PER EMAR.
[2023-02-27 15:10] VITALS: BP 151/80
--- NOTE | 2023-02-27 18:15 | NUR ---
SHIFT SUMMARY SINCE ARRIVING TO [facility] FLOOR MANAGEMENT SERVICES TECHNICIAN RESTED QUEITLY & NAPPED WITH BIPAP ON. WHEN AWAKE WEARS O2 4 L'S VIA N/C SATS >95%. MEDICATED ONCE FOR C/O PAIN PER EMAR WITH GOOD RELIEF STATED BY PT. PT ON A MAXIMO BED IN A LIFT ROOM. USED LIFT TO REPOSITION PT AFTER HYGIENE NEEDS ATTENDED TO. NEW PUREWICK PLACED AND BREIF CHANGED AFTER A LARGE BM. PT WAS ABLE TO ASSIST BY TURNING AND HOLDING THE RAILS. HER SATS REMAINED >90% DURING PROCESS. A&O X 4, VSS, IS PLEASANT & COOPERATIVE WITH ALL CARE. CALL IGHT WITHIN REACH. PLAN IS FOR PT TO RETURN TO THE MEDICAL CENTER ONCE CLINICALLY READY & A TRILOGY BIPAP HAS BEEN PROCURRED FOR PT.
[2023-02-27 19:47] VITALS: BP 152/69
[2023-02-28 02:11] VITALS: BP 157/75
--- NOTE | 2023-02-28 05:16 | NUR ---
PT WORE BIPAP FOR 2 HOURS. PT. REFUSED TO PUT IT BACK ON AFTER THIS. ATIVAN 0.5 MG ORDERED ONCE. PATIENT TOOK OXYCODONE ALTERNATING WITH TYLENOL. BOWEL MOVEMENT OVERNIGHT.
[2023-02-28 05:57] LABS: BASOPHILS ABSOLUTE AUTO 0.05 K/mm3 (0.00-0.23); BASOPHILS PERCENT AUTO 0 % (0-2); EOSINOPHILS ABSOLUTE AUTO 0.08 K/mm3 (0.00-0.68); EOSINOPHILS PERCENT AUTO 1 % (0-6); Hematocrit 32.3 % (33.0-51.0); Hemoglobin 9.8 g/dL (11.5-16.0); IMMATURE GRAN ABSOLUTE AUTO 0.07 K/mm3 (0.00-0.10); IMMATURE GRAN PERCENT AUTO 1 % (0-1); LYMPHOCYTES ABSOLUTE AUTO 1.46 K/mm3 (0.84-5.20); LYMPHOCYTES PERCENT AUTO 12 % (21-46); MONOCYTES ABSOLUTE AUTO 0.76 K/mm3 (0.16-1.47); MONOCYTES PERCENT AUTO 6 % (4-13); Mean Corpuscular HGB 25.7 pg (26.0-34.0); Mean Corpuscular HGB Conc 30.3 g/dL (31.5-36.5); Mean Corpuscular Volume 85 fL (80-100); Mean Platelet Volume 10.2 fL (9.1-12.4); NEUTROPHILS ABSOLUTE AUTO 10.33 K/mm3 (1.96-9.15); NEUTROPHILS PERCENT AUTO 81 % (41-73); Platelet Count 255 K/mm3 (150-400); Red Blood Cell Count 3.82 M/mm3 (3.80-5.20); White Blood Cell Count 12.75 K/mm3 (4.00-11.30)
[2023-02-28 06:54] LABS: Albumin/Globulin Ratio 0.6 (0.8-1.8); Bilirubin, Total 0.6 mg/dL (0.1-1.0); Bun/Creatinine Ratio 17.4 (12.0-20.0); Creatinine, Blood 0.63 mg/dL (0.40-1.00); Globulin, Blood 4.9 g/dL (2.2-4.0); Potassium, Blood 3.1 mmol/L (3.5-5.5); Total Protein, Blood 7.9 g/dL (6.4-8.2)
[2023-02-28 15:48] VITALS: BP 163/80
--- NOTE | 2023-02-28 19:08 | NUR ---
SHIFT SUMMARY: PT A&O X4. PT PLEASANT AND COOPERATIVE WITH CARE. NO ACUTE CHANGES WITH PT THIS SHIFT. 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 HOSPITALIST, RESIDENTS, AND MYSELF EXPLAINED TO PT IN DEPTH REGARDING IMPORTANCE OF WEARING BIPAP THROUGHOUT THE EVENING. PT LIKELY TO READMIT IF NON COMPLIENT. ATARAX ORDERED PRN. 20 MEQ POTASSIUM CHLORIDE ORDERED X6 BAGS. REPEAT POTASSIUM DRAWN AFTER FIRST 3 SHOWING NO IMPROVEMENT. TELE IN PLACE. IV LASIX PROVIDED PER EMAR. PAIN MEDICATIONS GIVEN PER EMAR FOR GENERALIZED PAIN. NS INFUSING @ 75/HR. TELE IN PLACE RUNNING SINUS W/PVC. CALL LIGHT IN REACH. BED IN LOWEST POSITION. REPORT GIVEN TO ONCOMING RN.
[2023-02-28 19:34] VITALS: BP 165/90
[2023-03-01 03:07] VITALS: BP 178/90
[2023-03-01 05:59] LABS: BASOPHILS ABSOLUTE AUTO 0.04 K/mm3 (0.00-0.23); BASOPHILS PERCENT AUTO 0 % (0-2); EOSINOPHILS PERCENT AUTO 2 % (0-6); Hematocrit 34.4 % (33.0-51.0); Hemoglobin 10.3 g/dL (11.5-16.0); IMMATURE GRAN ABSOLUTE AUTO 0.06 K/mm3 (0.00-0.10); IMMATURE GRAN PERCENT AUTO 1 % (0-1); LYMPHOCYTES ABSOLUTE AUTO 1.64 K/mm3 (0.84-5.20); LYMPHOCYTES PERCENT AUTO 14 % (21-46); MONOCYTES ABSOLUTE AUTO 0.77 K/mm3 (0.16-1.47); MONOCYTES PERCENT AUTO 6 % (4-13); Mean Corpuscular HGB 25.6 pg (26.0-34.0); Mean Corpuscular HGB Conc 29.9 g/dL (31.5-36.5); Mean Corpuscular Volume 86 fL (80-100); Mean Platelet Volume 10.5 fL (9.1-12.4); NEUTROPHILS ABSOLUTE AUTO 9.45 K/mm3 (1.96-9.15); NEUTROPHILS PERCENT AUTO 78 % (41-73); Platelet Count 244 K/mm3 (150-400); RDW Coefficient Variation 17.2 % (11.7-14.2); RDW Standard Deviation 53.4 fL (35.1-46.3); Red Blood Cell Count 4.02 M/mm3 (3.80-5.20); White Blood Cell Count 12.16 K/mm3 (4.00-11.30)
--- NOTE | 2023-03-01 06:16 | NUR ---
SHIFT SUMMARY NOC PT A/O X 4. PLEASANT AND COOPERATIVE WITH CARE. PT AGREED TO WEAR BIPAP FOR SLEEP, AND HAD ONE EPISODE OF DESATURATING INTO LOW 80'S, BT SPO2 INCREASED AFTER AWAKING PT, LEAK ALARM WAS TRIGGERED AND RT REFITTED BIPAP FOR PT, WHO HAS TOLERATED BIPAP WELL. PT WAS ON 4L/NC BEFORE BED. PT ON TELE RUNNING SINUS RHYTHM IN 80'S. PT FINISHED 3 20 MEQ BAGS IV POTASSIUM FOR POTASSIUM OF 3.1, AWAITING AM LABS FOR REEVALUTION. PT EXPECTED TO DISCHARGE HOME TO [facility] PENDING AM LABS. RT RECOMMENDS THAT PT RECEIVE SLEEP STUDY AT [facility] TO DETERMINE COURSE OF ACTION GOING FORWARD. PT IS CURRENTLY RESTING WITH BED IN LOWEST POSITION, AND CALL LIGHT WITHIN REACH.
[2023-03-01 06:55] LABS: Albumin, Blood 3.1 g/dL (3.4-5.0); Albumin/Globulin Ratio 0.6 (0.8-1.8); Bilirubin, Total 0.6 mg/dL (0.1-1.0); Bun/Creatinine Ratio 15.6 (12.0-20.0); Calcium, Blood 8.6 mg/dL (8.5-10.1); Creatinine, Blood 0.64 mg/dL (0.40-1.00); Globulin, Blood 4.9 g/dL (2.2-4.0); Potassium, Blood 3.6 mmol/L (3.5-5.5)
[2023-03-01 07:20] VITALS: BP 149/73
[2023-03-01 15:26] VITALS: BP 142/73
[2023-03-01 17:25] LABS: SARS-Cov-2 (COVID-19) PCR, MMC NEGATIVE (NEGATIVE)
--- NOTE | 2023-03-01 18:45 | NUR ---
SHIFT SUMMARY PATIENT CONTINUES TO HAVE LOTS OF ISSUES WITH ANXIETY. PATIENT ALERT AND INTERACTIVE. PROCESS INITITATED FOR TRANSFER TO [facility]. PATIENT CURRENTLY RESIDES THERE. PATIENT VERBALIZING CONCERNS RELATED TO SAFETY AND HAVING APPROPRIATE EQUIPMENT. PATIENT ATTEMPTED TO WEAR THE BIPAP BUT VISITORS ARRIVED. PATIENT EDUCATED ON IMPORTANCE OF CONTROLLING ANXIETY, RESCUE BREATHING AND RELAXATION TECHNIQUES REVIEWED. PATIENT ABLE TO ASSIST WITH TURNING. PATIENT MEDICATED FOR PAIN AND ANXIETY PER MAR. FAMILY SUPPORTED PATIENTS CONCERNS. TRANSFER BACK TO [facility] CURRENTLY ON HOLD.
[2023-03-01 19:27] VITALS: BP 162/80
[2023-03-02 04:07] VITALS: BP 177/87
[2023-03-02 04:42] VITALS: BP 171/91
--- NOTE | 2023-03-02 05:34 | NUR ---
SHIFT SUMMARY NOC PT A/O X 4. PLEASANT AND COOPERATIVE WITH CARE. PT WAS SUPPOSED TO DISCHARGE YESTERDAY BACK TO [facility], BUT PT HAD SAFETY CONCERNS ABOUT TRAVELING IN [place], AND NOT HAVING APPROPRIATE EQUIPMENT FOR DISCHARGE. DISCHARGE EXPECTED TOMORROW, WITH NEW ORDERS NEEDING TO BE SIGNED BY MD, WILL PASS ALONG TO DAY RN. PT WEARING BIPAP AND TOLERATING WELL, BUT HEAD GEAR NEEDED TO BE SWITCHED OUT FOR BETTER FIT TO PREVENT LEAKS, AFTER MASK CHANGE PT SPO2 > 95% BEING MONITORED BY CONTINOUS BIOX. PT ANXIETY SEEMED DECREASED FROM PREVIOUS NIGHT. PT ON TELE RUNNING SINUS RHYTHM @ 92 BPM. HAS PUREWICK IN PLACE. INFUSING NS @ 75 ML/HR. PT STATES READINESS TO RETURN HOME TO [facility]. PT IS CURRENTLY RESTING WITH BED IN LOWEST POSITION, AND CALL LIGHT WITHIN REACH.
[2023-03-02 05:58] VITALS: BP 175/83
[2023-03-02 07:31] VITALS: BP 180/89
[2023-03-02] MEDS ORDERED: IPRAT-ALBUT 0.5-3 ML INH (09:29)
--- NOTE | 2023-03-02 12:10 | NUR ---
SHIFT SUMMARY AND DISCHARGE PATIENT DISCHARGED BACK TO [facility]. PATIENT ALERT AND INTERACTIVE. CONTINUES TO HAVE EPISODES OF ANXIETY. PROVIDED ACTIVE LISTENING AND EDUCATED PATIENT ON NON PHARMACOLOGICAL WAYS TO HELP CONTROL ANXIETY. PATIENT TRANSFERED OVER TO [facility] WITH LIFT SHEET. BELONGINGS SENT WITH PATIENT INCLUDING WHEELCHAIR. TABLET SENT WITH PATIENT. DISCHARGE PLAN REVIEWED WITH PATIENT. IV DC'D PRIOR TO DISCHARGE. PATIENT MEDICATED WITH PAIN MEDS AND ANXIETY MEDS 1X PRIOR TO DISHCARGE.
== END 2023-03-02 12:20 | DRG 91 ==
LOC: ER 17:13 → PCU 17:14 → MEDS 17:14 → PCU 02-25 05:15 → MEDS 02-25 13:32 → PCU 02-25 13:32 → MEDS 02-27 13:59 → ENPENDDIS 03-02 11:35 → MEDS 03-02 12:20
PROVIDERS: Emergency Medicine; Internal Medicine; Nurse Practitioner Acute Care; ADMIT Student in an Organized Health Care Education/Training Program
PROC: 5A09357 Assistance with Respiratory Ventilation, Less than 24 Consecutive Hours, Continuous Positive Airway Pressure (ICD-10-PCS; principal; 2023-02-25)
DX: G92.8 Other toxic encephalopathy (principal); I50.31 Acute diastolic (congestive) heart failure; J96.21 Acute and chronic respiratory failure with hypoxia; J96.22 Acute and chronic respiratory failure with hypercapnia; E66.2 Morbid (severe) obesity with alveolar hypoventilation; Z68.44 Body mass index [BMI] 60.0-69.9, adult; F41.9 Anxiety disorder, unspecified; E87.6 Hypokalemia; I27.20 Pulmonary hypertension, unspecified; I51.7 Cardiomegaly; G43.909 Migraine, unspecified, not intractable, without status migrainosus; D63.8 Anemia in other chronic diseases classified elsewhere; G89.4 Chronic pain syndrome; M79.7 Fibromyalgia; Z86.711 Personal history of pulmonary embolism; Z11.52 Encounter for screening for COVID-19; Z90.710 Acquired absence of both cervix and uterus; Z79.01 Long term (current) use of anticoagulants
CPT/HCPCS: 0241U; 36415; 71045; 71260; 80053; 82140; 82803; 83735; 84132; 85025; 94640; 94644; 94660; 94664; 94760; 94762; 96365; 96374; 96375; 96376; 99285-25; A9270; C8929; G0378; J0360; J1940; J2405; J2930; J3480; J7030; Q9957; Q9967; U0002